=== PATIENT | female | born 1960 | race Caucasian/White ===

== ENCOUNTER 2021-08-29 17:43 | Inpatient (IN) | payer MEDICAID ==
[~2021-08-29] VITALS: Ht 152.4 cm; Wt 125.3 kg
[2021-08-30] VITALS (7 sets, daily range): BP systolic 89–119; BP diastolic 54–81
[2021-08-30] MEDS ORDERED: diphenhydrAMINE 50 MG/ML INJ (BENADRYL) IVP PRN (02:30)
[2021-08-30] MEDS ORDERED: ONDANSETRON 4 MG/2 ML (SDV) Z0FRAN IVP PRN (02:30)
--- OUTSIDE RECORDS SUMMARY | 2021-08-30 02:53 | XMS REPORT ---
Author Author Gayle Ernst Organization [facility] Address [address] [place], [place] [id number] Care Team Providers Care Buying Intern Name Role Phone Anya Ernst PCP Javid Cameron PreferredProvider Allergies and Adverse Reactions Name Reaction Notes NO KNOWN DRUG ALLERGIES Plan of Treatment Planned Activity Comments Planned Date Planned Time Plan/Goal Urinary Incontinence 08/05/2018 3:00 PM Rectal bleeding URINALYSIS W/MICRO C&S IF IND 08/05/2018 12:00 AM URINALYSIS W/MICRO C&S IF IND 02/20/2019 12:00 AM Urinary Incontinence 10/07/2016 10:20 AM Urine culture and sensitivity 08/23/2021 12:00 AM Low back pain Medications Active Name Start Date Estimated Completion Date SIG Co mments Anusol-HC 25 mg rectal suppository 04/11/2019 insert 1 suppository (25 mg) by rectal route once a day at bedtime lisinopril 10 mg oral tablet 11/27/2019 TAKE 1 TABLE T BY MOUTH EVERY DAY simvastatin 10 mg oral tablet 08/22/2020 TA KE 1 TABLET(10 MG) BY MOUTH EVERY DAY IN THE EVENING polyethylene glycol 3350 (bulk) powder 02/25/2021 us e as directed furosemide 20 mg tablet 03/03/2021 take 1 t ablet (20 mg) by oral route once daily as needed for edema LISINOPRIL 10MG TABLETS 05/16/2021 05/11/2022 TAKE 1 TABLET BY MOUTH EVERY DAY SIMVASTATIN 10MG TABLETS 05/19/2021 05/14/2022 TAKE 1 TABLET(10 MG) BY MOUTH EVERY DAY IN THE EVENING MYRBETRIQ 50MG TABLETS 07/15/2021 01/11/2022 TAKE 1 TA BLET BY MOUTH ONCE DAILY SWALLOWING WHOLE WITH WATER. DO NOT CRUSH, CHEW, AND/OR DIVIDE Name Start Date Expiration Date SIG Comments Cipro 500 mg oral tablet 03/09/2015 03/14/2015 take 1 tablet (500 mg) by oral route 2 times per day for 5 days furosemide 40 mg oral tablet 09/12/2015 03/10/2016 leyda e 1 tablet (40 mg) by oral route once daily for 30 days Using her recliner Vesicare 10 mg oral tablet 09/07/2016 03/06/2017 take 1 tablet (10 mg) by oral route once daily for 30 days Myrbetriq 50 mg oral tablet extended release 24 hr take 1 tablet (50 mg) by oral route once daily swallowing whole with water. Do not crush, chew and/or divide. diclofenac sodium 1 % topical gel 08/29/2018 09/28/2018 apply 2 gram to the affected area(s) by topical route 4 times per day for 30 days Lyrica 50 mg oral capsule 08/29/2018 09/05/2018 take 1 capsule (50 mg) by oral route 3 times per day for 7 days celecoxib 200 mg oral capsule 11/15/2018 12/15/2018 ta ke 1 capsule (200 mg) by oral route 2 times per day for 30 days baclofen 10 mg oral tablet 12/27/2018 01/26/2019 take 1 tablet by oral route once a day (at bedtime) for 30 days Vesicare 5 mg oral tablet 02/20/2019 02/15/2020 take 1 tablet (5 mg) by oral route once daily for 30 days Medrol (Shravan) 4 mg oral tablets,dose pack 03/03/2019 take as directed for 6 days tizanidine 4 mg oral tablet 03/03/2019 03/10/2019 take 1 tablet (4 mg) by oral route every 8 hours as needed for 7 days metaxalone 800 mg oral tablet 08/15/2019 09/14/2019 ta ke 1 tablet by oral route 3 times a day for 30 days Myrbetriq 50 mg oral tablet extended release 24 hr 08/21/2020 07/17/2021 take 1 tablet (50 mg) by oral route once daily swallowing whole with water. Do not crush, chew and/or divide. for 30 days SOLIFENACIN 5MG TABLETS 11/18/2020 03/18/2021 TAKE 1 T ABLET(5 MG) BY MOUTH EVERY DAY duloxetine 20 mg capsule,delayed release 03/03/2021 take 1 capsule (20 mg) by oral route 2 times per day for 30 days SOLIFENACIN 5MG TABLETS 03/17/2021 08/14/2021 TAKE 1 T ABLET(5 MG) BY MOUTH EVERY DAY Discontinued Name Start Date Discontinued Date SIG Comments pain med 08/10/2012 no meds 09/15/2012 famciclovir 500 mg oral tablet 09/15/2012 06/25/2014 t tomas 3 tablets by oral route together meloxicam 15 mg oral tablet 09/15/2012 02/21/2013 take 1 tablet (15 mg) by oral route once daily as needed with food for 90 days diclofenac sodium 75 mg oral tablet,delayed release (DR/EC) 02/2106/25/2014 take 1 tablet (75 mg) by oral route 2 times per day with food diclofenac sodium 75 mg oral tablet,delayed release (DR/EC) 06/2503/04/2015 take 1 tablet (75 mg) by oral route 2 times per day with food as needed for arthritis pain "not taking this" furosemide 20 mg oral tablet 06/25/2014 03/04/2015 leyda e 1 tablet (20 mg) by oral route once daily as needed for swelling metformin 500 mg oral tablet 07/04/2014 03/04/2015 leyda e 1 tablet (500 mg) by oral route once daily with the main meal of the day "not taking this" furosemide 20 mg oral tablet 06/21/2015 08/12/2015 leyda e 1 tablet (20 mg) by oral route once daily as needed potassium chloride 20 mEq oral tablet extended release 05/31/2017 take 1 tablet by oral route daily for 30 days "made me throw up" prednisone 20 mg oral tablet 09/07/2016 05/31/2017 leyda e 1 tablet (20 mg) by oral route once daily for 5 days then 0.5 tablet (10 mg) daily for 4 days diclofenac sodium 75 mg oral tablet,delayed release (DR/EC) 201605/31/2017 TAKE 1 TABLET BY ORAL ROUTE 2 TIMES A DAY FOR 30 DAYS WITH FOOD naproxen sodium 550 mg oral tablet 05/31/2017 06/29/2018 take 1 tablet (550 mg) by oral route every 12 hours as needed with food cyclobenzaprine 10 mg oral tablet 05/31/2017 09/16/2017 take 1 tablet (10 mg) by oral route at bedtime triamcinolone acetonide 0.1 % topical lotion 05/31/201712/06 apply a thin layer to the affected area(s) by topical route 3 times per day metformin 500 mg oral tablet 09/16/2017 08/29/2018 leyda e 1 tablet (500 mg) by oral route once daily with the main meal of the day Vaniqa 13.9 % topical cream 06/29/2018 07/18/2018 appl y a thin layer to the affected area(s) by topical route 2 times per day On back order calcipotriene 0.005 % topical cream 06/29/2018 12/06/2018 apply a thin layer to the affected area(s) by topical route 2 times per day ; rub in gently and completely diclofenac sodium 75 mg oral tablet,delayed release (DR/EC) 06/29/2018 08/29/2018 take 1 tablet (75 mg) by oral route 2 times per day fo r 90 days spironolactone 25 mg oral tablet 07/18/2018 08/18/2018 take 1 tablet (25 mg) by oral route once daily for 90 days in am Never filled. Has history of Urinary Incontinence. Toviaz 8 mg oral tablet extended release 24 hr 07/18/2018 1 take 1 tablet (8 mg) by oral route once daily for 30 days "Stopped by Dr. Ruiz" Savella 12.5 mg (5)-25 mg(8)-50 mg(42) oral tablets,dose pac k 09/09/2018 12/06/2018 take as directed Lyrica 50 mg oral capsule 10/11/2018 12/06/2018 take 1 capsule (50 mg) by oral route 3 times per day for 30 days duloxetine 40 mg oral capsule,delayed release(DR/EC) 02/02/2019 04/11/2019 take 1 capsule (40 mg) by oral route once daily for 30 days "not taking it" tizanidine 4 mg oral tablet 04/04/2019 06/07/2019 take 1 tablet (4 mg) by oral route every 8 hours as needed for 30 days methocarbamol 500 mg oral tablet 06/07/2019 07/11/2019 take 2 tablets (1,000 mg) by oral route 4 times per day for 30 days orphenadrine citrate 100 mg oral tablet extended release 07/11/20 19 08/15/2019 take 1 tablet (100 mg) by oral route 2 times per day in the morning and evening for 30 days solifenacin 5 mg oral tablet 03/26/2020 02/25/2021 LEYDA E 1 TABLET(5 MG) BY MOUTH EVERY DAY Problem List Description Status Onset ganglion cysts Active Vital Signs Date Time BP-Sys(mm[Hg] BP-Елена(mm[Hg]) HR(bpm) RR(rpm) Temp WT HT HC BMI BSA BMI Percentile O2 Sat(%) 08/23/2021 12:02:00 PM 140 mm[Hg] 82 mm[Hg] 101 {beats}/min 20 rpm 99.7 F 264 lbs 61 in 49.8819 kg/m2 2.2702 m2 97 % 03/03/2021 12:56:00 PM 142 mm[Hg] 78 mm[Hg] 106 {beats}/min 22 rpm 99.4 F 277 lbs 93 % 02/25/2021 9:49:00 AM 148 mm[Hg] 76 mm[Hg] 78 {beats}/min 18 rpm 87.1 F 276 lbs 61 in 52.1492 kg/m2 2.3212 m2 97 % 01/31/2021 10:03:00 AM 108 mm[Hg] 72 mm[Hg] 83 {beats}/min 18 rpm 98.1 F 273 lbs 61 in 51.58 kg/m2 2.31 m2 98 % 02/26/2020 9:48:00 AM 140 mm[Hg] 70 mm[Hg] 81 {beats}/min 18 rpm 98.6 F 242.312 lbs 98 % 08/15/2019 9:58:00 AM 122 mm[Hg] 78 mm[Hg] 103 {beats}/min 97.7 F 227.375 lbs 61 in 42.9617 kg/m2 2.1069 m2 96 % 07/12/2019 10:30:00 AM 138 mm[Hg] 86 mm[Hg] 76 {beats}/min 18 rpm 98.1 F 243 lbs 61 in 45.91 kg/m2 2.18 m2 96 % 07/11/2019 9:25:00 AM 128 mm[Hg] 80 mm[Hg] 75 {beats}/min 18 rpm 98.1 F 245.562 lbs 61 in 46.3982 kg/m2 2.1895 m2 96 % 06/07/2019 11:23:00 AM 134 mm[Hg] 74 mm[Hg] 96 {beats}/min 96.6 F 235.375 lbs 61 in 44.47 kg/m2 2.14 m2 96 % 04/11/2019 3:36:00 PM 154 mm[Hg] 80 mm[Hg] 78 {beats}/min 22 rpm 99 F 247 lbs 61 in 46.6698 kg/m2 2.1959 m2 97 % 04/04/2019 9:37:00 AM 126 mm[Hg] 76 mm[Hg] 71 {beats}/min 98 F 247 lb s 61 in 46.67 kg/m2 2.20 m2 97 % 03/03/2019 9:56:00 AM 120 mm[Hg] 80 mm[Hg] 90 {beats}/min 97 F 249.375 lbs 61 in 47.1185 kg/m2 2.2064 m2 97 % 02/20/2019 10:07:00 AM 118 mm[Hg] 70 mm[Hg] 74 {beats}/min 18 rpm 97.2 F 250.5 lbs 61 in 47.33 kg/m2 2.21 m2 96 % 02/02/2019 9:23:00 AM 126 mm[Hg] 80 mm[Hg] 89 {beats}/min 97.3 F 253.062 lbs 61 in 47.82 kg/m2 2.22 m2 96 % 01/06/2019 10:22:00 AM 122 mm[Hg] 74 mm[Hg] 81 {beats}/min 18 rpm 97.7 F 251 lbs 61 in 47.4255 kg/m2 2.2136 m2 96 % 12/27/2018 10:11:00 AM 128 mm[Hg] 80 mm[Hg] 79 {beats}/min 20 rpm 98.6 F 251 lbs 61 in 47.43 kg/m2 2.21 m2 95 % 12/20/2018 11:09:00 AM 134 mm[Hg] 86 mm[Hg] 83 {beats}/min 96.6 F 61 in 96 % 12/06/2018 1:42:00 PM 130 mm[Hg] 66 mm[Hg] 79 {beats}/min 20 rpm 98.1 F 264 lbs 61 in 49.8819 kg/m2 2.2702 m2 98 % 11/15/2018 9:23:00 AM 122 mm[Hg] 78 mm[Hg] 85 {beats}/min 18 rpm 97.3 F 251.125 lbs 61 in 47.45 kg/m2 2.21 m2 95 % 10/11/2018 9:36:00 AM 130 mm[Hg] 86 mm[Hg] 74 {beats}/min 18 rpm 258.375 lbs 61 in 48.819 kg/m2 2.2459 m2 97 % 09/06/2018 11:02:00 AM 144 mm[Hg] 78 mm[Hg] 83 {beats}/min 16 rpm 98.6 F 261 lbs 61 in 49.32 kg/m2 2.26 m2 98 % 08/29/2018 9:06:00 AM 140 mm[Hg] 70 mm[Hg] 77 {beats}/min 98.8 F 267.437 lbs 61 in 50.5314 kg/m2 2.2849 m2 95 % 08/22/2018 9:30:00 AM 128 mm[Hg] 80 mm[Hg] 84 {beats}/min 18 rpm 98.1 F 263.5 lbs 61 in 49.79 kg/m2 2.27 m2 98 % 08/18/2018 3:21:00 PM 152 mm[Hg] 80 mm[Hg] 88 {beats}/min 22 rpm 98.2 F 264 lbs 61 in 49.8819 kg/m2 2.2702 m2 98 % 08/05/2018 3:18:00 PM 152 mm[Hg] 90 mm[Hg] 84 {beats}/min 16 rpm 98.6 F 260.25 lbs 60 in 50.83 kg/m2 2.24 m2 95 % 07/18/2018 10:20:00 AM 162 mm[Hg] 84 mm[Hg] 80 {beats}/min 18 rpm 97.9 F 272.5 lbs 61 in 51.4879 kg/m2 2.3065 m2 95 % 06/29/2018 10:21:00 AM 144 mm[Hg] 80 mm[Hg] 82 {beats}/min 22 rpm 98.8 F 280 lbs 61 in 52.90 kg/m2 2.34 m2 97 % 09/16/2017 9:13:00 AM 136 mm[Hg] 78 mm[Hg] 81 {beats}/min 20 rpm 97 F 273 lbs 61 in 51.5824 kg/m2 2.3086 m2 99 % 08/16/2017 10:00:00 AM 144 mm[Hg] 86 mm[Hg] 74 {beats}/min 18 rpm 97.7 F 277.25 lbs 61 in 52.39 kg/m2 2.33 m2 98 % 05/31/2017 3:03:00 PM 146 mm[Hg] 88 mm[Hg] 88 {beats}/min 20 rpm 98.8 F 288 lbs 61 in 54.4166 kg/m2 2.3712 m2 96 % 09/07/2016 3:16:00 PM 134 mm[Hg] 82 mm[Hg] 98 {beats}/min 22 rpm 97.2 F 292.2 lbs 61 in 55.21 kg/m2 2.39 m2 99 % 08/12/2015 9:24:00 AM 152 mm[Hg] 88 mm[Hg] 80 {beats}/min 22 rpm 98.2 F 300 lbs 61 in 56.6839 kg/m2 2.4201 m2 98 % 03/09/2015 1:55:00 PM 278 lbs 61 in 52.53 kg/m2 2.33 m2 03/04/2015 9:34:00 AM 138 mm[Hg] 88 mm[Hg] 72 {beats}/min 16 rpm 97.3 F 278 lbs 61 in 52.5271 kg/m2 2.3296 m2 06/25/2014 10:01:00 AM 138 mm[Hg] 82 mm[Hg] 80 {beats}/min 22 rpm 98 F 273 lbs 61 in 51.58 kg/m2 2.31 m2 02/21/2013 3:52:00 PM 126 mm[Hg] 78 mm[Hg] 70 {beats}/min 18 rpm 98.6 F 223 lbs 61 in 42.135 kg/m2 2.0865 m2 11/08/2012 9:25:00 AM 134 mm[Hg] 78 mm[Hg] 70 {beats}/min 18 rpm 98.6 F 228 lbs 61 in 43.08 kg/m2 2.11 m2 09/15/2012 9:09:00 AM 130 mm[Hg] 68 mm[Hg] 62 {beats}/min 18 rpm 98 F 240 lbs 62 in 43.8961 kg/m2 2.1822 m2 08/10/2012 10:08:00 AM 120 mm[Hg] 80 mm[Hg] 67 {beats}/min 18 rpm 97.7 F 247 lbs 61 in 46.67 kg/m2 2.20 m2 98 % 06/29/2012 10:58:00 AM 120 mm[Hg] 80 mm[Hg] 65 {beats}/min 18 rpm 96.7 F 259.5 lbs 61 in 49.0316 kg/m2 2.2508 m2 97 % 06/01/2012 8:42:00 AM 110 mm[Hg] 68 mm[Hg] 86 {beats}/min 20 rpm 96.1 F 276 lbs 62 in 50.48 kg/m2 2.34 m2 97 % 05/25/2012 1:58:00 PM 120 mm[Hg] 60 mm[Hg] 66 {beats}/min 18 rpm 97.4 F 276.5 lbs 62 in 50.572 kg/m2 2.3423 m2 98 % 05/11/2012 10:48:00 AM 120 mm[Hg] 60 mm[Hg] 71 {beats}/min 18 rpm 97.6 F 278.125 lbs 62 in 50.87 kg/m2 2.35 m2 95 % 05/02/2012 1:44:00 PM 120 mm[Hg] 60 mm[Hg] 78 {beats}/min 18 rpm 96.9 F 271.5 lbs 62 in 49.6575 kg/m2 2.321 m2 99 % 04/26/2012 9:43:00 AM 276.125 lbs 04/20/2012 9:26:00 AM 118 mm[Hg] 68 mm[Hg] 82 {beats}/min 18 rpm 97.3 F 280 lbs 64 in 48.06 kg/m2 2.39 m2 96 % 04/14/2012 1:43:00 PM 110 mm[Hg] 68 mm[Hg] 93 {beats}/min 18 rpm 98.5 F 285 lbs 64 in 48.9196 kg/m2 2.4161 m2 97 % Social History Name Description Comments Alcohol Never Tobacco Never smoker History of Procedures Date Ordered Description Order Status 08/12/2015 12:00 AM TTE W/DOPPLER COMPLETE Reviewed 09/07/2016 12:00 AM TISSUE EXAM FOR FUNGI Reviewed 09/07/2016 12:00 AM SMEAR WET MOUNT SALINE/INK Reviewed 09/07/2016 12:00 AM SMEAR WET M[place] SALINE/INK Reviewed 09/07/2016 12:00 AM Digital screening mammography Reviewed 09/07/2016 12:00 AM RADEX HAND MINIMUM 3 VIEWS Reviewed 04/14/2012 12:00 AM X-RAY EXAM OF FINGER(S) Reviewed 04/14/2012 12:00 AM COMPLETE CBC W/AUTO DIFF WBC Reviewed 04/14/2012 12:00 AM COMPREHEN METABOLIC PANEL Reviewed 04/14/2012 12:00 AM LIPID PANEL Reviewed 04/20/2012 12:00 AM ASSAY GLUCOSE BLOOD QUANT Reviewed 04/20/2012 12:00 AM X-RAY EXAM OF SHOULDER Reviewed 04/22/2012 12:00 AM GLYCOSYLATED HEMOGLOBIN TEST Reviewed 06/29/2012 12:00 AM DESTRUCT PREMALG LESION Reviewed 06/04/2017 12:00 AM ASSAY GLUCOSE BLOOD QUANT Reviewed 08/16/2017 12:00 AM Decadron 8mg Injection Reviewed 08/16/2017 12:00 AM Depo-Medrol 80mg Injection Reviewed 09/16/2017 12:00 AM GLYCOSYLATED HEMOGLOBIN TEST Reviewed 09/16/2017 12:00 AM LIPID PANEL Reviewed 09/16/2017 12:00 AM COMPREHEN METABOLIC PANEL Reviewed 09/16/2017 12:00 AM ALBUMIN URINE MICROALBUMIN QUANTIATIVE R eviewed 09/15/2012 12:00 AM METABOLIC PANEL TOTAL CA Reviewed 09/15/2012 12:00 AM LIPID PANEL Reviewed 09/30/2012 12:00 AM ASSAY GLUCOSE BLOOD QUANT Reviewed 11/08/2012 12:00 AM X-RAY EXAM OF HIP Reviewed 11/08/2012 12:00 AM METABOLIC PANEL TOTAL CA Reviewed 11/08/2012 12:00 AM GLYCOSYLATED HEMOGLOBIN TEST Reviewed 05/31/2017 12:00 AM GLYCOSYLATED HEMOGLOBIN TEST Reviewed 05/31/2017 12:00 AM ASSAY THYROID STIM HORMONE Reviewed 05/31/2017 12:00 AM ASSAY OF TOTAL THYROXINE Reviewed 05/31/2017 12:00 AM ASSAY OF INSULIN Reviewed 05/31/2017 12:00 AM RADIOLOGIC EXAMINATION KNEE 1/2 VIEWS Re viewed 05/31/2017 12:00 AM RADEX SPINE LUMBOSACRAL 2/3 VIEWS Review ed 05/31/2017 12:00 AM COMPREHEN METABOLIC PANEL Reviewed 07/18/2018 12:00 AM COMPREHEN METABOLIC PANEL Reviewed 07/18/2018 12:00 AM GLYCOSYLATED HEMOGLOBIN TEST Reviewed 07/18/2018 12:00 AM LIPID PANEL Reviewed 08/18/2018 12:00 AM METABOLIC PANEL TOTAL CA Reviewed 08/22/2018 12:00 AM Mammogram, screening, bilateral Reviewed 08/30/2018 12:00 AM ASSAY GLUCOSE BLOOD QUANT Reviewed 12/20/2018 12:00 AM RADIOLOGIC EXAMINATION TIBIA & FIBULA 2 VIEWS Returned 01/06/2019 12:00 AM URINALYSIS AUTO W/SCOPE Reviewed 02/20/2019 10:10 AM US URINE CAPACITY MEASURE Reviewed 04/11/2019 12:00 AM GLYCOSYLATED HEMOGLOBIN TEST Reviewed 04/11/2019 12:00 AM LIPID PANEL Reviewed 04/11/2019 12:00 AM COMPREHEN METABOLIC PANEL Reviewed 07/12/2019 12:00 AM COMPLETE CBC W/AUTO DIFF WBC Reviewed 07/12/2019 12:00 AM METABOLIC PANEL TOTAL CA Reviewed 07/12/2019 12:00 AM PROTHROMBIN TIME Reviewed 07/12/2019 12:00 AM THROMBOPLASTIN TIME PARTIAL Reviewed 01/31/2021 12:00 AM URINALYSIS AUTO W/SCOPE Reviewed 08/23/2021 12:27 PM URINALYSIS AUTO W/O SCOPE Reviewed 06/26/2014 12:00 AM ASSAY GLUCOSE BLOOD QUANT Reviewed 06/25/2014 12:00 AM COMPREHEN METABOLIC PANEL Reviewed 06/25/2014 12:00 AM LIPID PANEL Reviewed 06/25/2014 12:00 AM GLYCOSYLATED HEMOGLOBIN TEST Reviewed 06/25/2014 12:00 AM MAMMOGRAM SCREENING Reviewed 03/04/2015 12:00 AM X-RAY EXAM KNEE 4 OR MORE Reviewed 03/09/2015 2:10 PM URINALYSIS AUTO W/O SCOPE Reviewed 03/09/2015 12:00 AM URINE CULTURE/COLONY COUNT Reviewed 03/09/2015 12:00 AM General Surgery Consult Reviewed Results Summary Date and Description Results 09/15/2012 10:04 AM GLUCOSE 126.0 mg/dLSODIUM 14 1.0 mmol/LPOTASSIUM 4.40 mmol/LCHLORIDE 109.0 mmol/LCO2 22.0 mmol/LBUN 23.0 mg/dLCREATININE 0.90 mg/dLCALCIUM 9.60 mg/dLAGE 52 GFR NonAA 65 GFR AA 79 eGFR 60 eGFR AA* 60 T RIGLYCERIDES 140.0 mg/dLCHOLESTEROL 184.0 mg/dLHDL 31.0 mg/dLTOT CHOL/HDL 5.9 LDL (CALC) 125.0 mg/dL 10/03/2012 10:30 AM GLUCOSE 119.0 mg/dL 11/08/2012 10:30 AM GLUCOSE 114.0 mg/dLSODIUM 14 1.0 mmol/LPOTASSIUM 4.30 mmol/LCHLORIDE 106.0 mmol/LCO2 25.0 mmol/LBUN 18.0 mg/dLCREATININE 0.90 mg/dLCALCIUM 9.50 mg/dLAGE 52 GFR NonAA 65 GFR AA 79 eGFR 60 eGFR AA* 60 G LYCOHEMOGLOBIN A1C 5.70 % 06/25/2014 11:02 AM HGB A1C 6.20 %Est Avg Glucos e 131.2 mg/dLTRIGLYCERIDES 98.0 mg/dLCHOLESTEROL 178.0 mg/dLHDL 40.0 mg/dLTOT CHOL/HDL 4.5 LDL (CALC) 118.0 mg/dLGLUCOSE 131.0 mg/dLSODIUM 143.0 mmol/LPOTASSIUM 4.80 mmol/LCHLORIDE 107.0 mmol/LCO2 25.0 mmol/LBUN 18.0 mg/dLCREATININE 0.90 mg/dLSGOT/AST 14.0 IU/LSGPT/ALT 10.0 IU/LALK PHOS 81.0 IU/LTOTAL PROTEIN 7.0 g/dLALBUMIN 4.20 g/dLTOTAL BILI 0.80 mg/dLCALCIUM 9.50 mg/dLAGE 54 GFR NonAA 65 GFR AA 79 eGFR 60 eGFR AA* 60 06/28/2014 9:30 AM GLUCOSE 125.0 mg/dL 03/09/2015 2:10 PM Bilirub Ur Ql Strip negative Clarity Ur clear Color Ur lt. yellow Glucose Ur-sCnc negative Hgb Ur Ql Strip trace Ketones Ur Ql Strip negative Nitrite Ur Ql Strip negative pH Ur-LsCnc 5.0 Prot Ur Ql Strip negative Sp Gr Ur Qn 1.010 Urobilinogen Ur-mCnc 0.2 WBC Est Ur Ql Strip moderate 09/07/2016 5:16 PM WET PREP NO TRICH SEEN CLUE CELLS NONE SEEN 06/03/2017 9:25 AM T4 7.10 ug/dLTSH 1.250 uIU/m LHGB A1C 6.20 %Est Avg Glucose 131.2 mg/dLGLUCOSE 147.0 mg/dLSODIUM 140.0 mmol/LPOTASSIUM 4.50 mmol/LCHLORIDE 106.0 mmol/LCO2 22.0 mmol/LBUN 18.0 mg/dLCREATININE 0.90 mg/dLSGOT/AST 16.0 IU/LSGPT/ALT 9.0 IU/LALK PHOS 83.0 IU/LTOTAL PROTEIN 7.60 g/dLALBUMIN 4.20 g/dLTOTAL BILI 1.30 mg/dLCALCIUM 9.70 mg/dLAGE 57 GFR NonAA 64 GFR AA 78 eGFR >60 mL/min/1.73 m2eGFR AA* >60 Insulin 11.8 06/07/2017 9:45 AM GLUCOSE 102.0 mg/dL 09/16/2017 9:00 AM GLUCOSE 137.0 mg/dLSODIUM 14 3.0 mmol/LPOTASSIUM 4.40 mmol/LCHLORIDE 107.0 mmol/LCO2 26.0 mmol/LBUN 16.0 mg/dLCREATININE 0.90 mg/dLSGOT/AST 12.0 IU/LSGPT/ALT 9.0 IU/LALK PHOS 84.0 IU/LTOTAL PROTEIN 6.90 g/dLALBUMIN 4.0 g/dLTOTAL BILI 1.20 mg/dLCALCIUM 9.30 mg/dLAGE 57 GFR NonAA 64 GFR AA 78 eGFR >60 mL/min/1.73 m2eGFR AA* >60 TRIGLYCERIDES 83.0 mg/dLCHOLESTEROL 161.0 mg/dLHDL 43.0 mg/dLTOT CHOL/HDL 3.7 LDL (CALC) 101.0 mg/dLMICROALBUMIN UR 6.0 ug/mLHGB A1C 5.90 %Est Avg Glucose 122.6 mg/dL 07/19/2018 10:26 AM HGB A1C 5.60 %Est Avg Glucos e 114.0 GLUCOSE 120 SODIUM 141 POTASSIUM 4.5 CHLORIDE 106 CO2 23 BUN 17.0 mg/dLCREATININE 0.90 mg/dLSGOT/AST 14 SGPT/ALT 10 ALK PHOS 80 TOTAL PROTEIN 7.8 ALBUMIN 4.70 g/dLTOTAL BILI 1.0 CALCIUM 10.0 mg/dLAGE 58 GFR NonAA 64 GFR AA 78 eGFR 64 eGFR AA* >60 mL/min/1.73 [id number] 132 CHOLESTEROL 201.0 mg/dLHDL 39 TOT CHOL/HDL 5.2 LDL (CALC) 136 08/22/2018 10:20 AM GLUCOSE 135 SODIUM 140 POTAS SIUM 4.5 CHLORIDE 110.0 mmol/LCO2 19 BUN 23.0 mg/dLCREATININE 1.0 mg/dLCALCIUM 9.70 mg/dLAGE 58 GFR NonAA 57 GFR AA 69 eGFR 57 eGFR AA* >60 mL/min/1.73 m2 01/06/2019 11:15 AM COLOR YELLOW APPEARANCE NIKI R SPEC GRAV 1.025 pH 6.0 PROTEIN NEGATIVE GLUCOSE NEGATIVE KETONE TRACE BILIRUBIN NEGATIVE BLOOD NEGATIVE NITRITE NEGATIVE LEUK SCREEN NEGATIVE WBC/HPF 0-5 RBC/HPF NEGATIVE CASTS/LPF NEGATIVE CRYSTALS NEGATIVE MUCOUS THRDS 2++ BACTERIA 1+ EPITH CELLS 2++ SQUAMOUS TRICHOMONAS NEGATIVE YEAST NEGATIVE CULT SET UP? NO 02/20/2019 10:10 AM Residual Urine 64.0 mL 04/13/2019 9:30 AM TRIGLYCERIDES 127 CHOLESTERO L 132.0 mg/dLHDL 34 TOT CHOL/HDL 3.9 LDL (CALC) 73 GLUCOSE 127 SODIUM 143 POTASSIUM 5.1 CHLORIDE 110.0 mmol/LCO2 23 BUN 14.0 mg/dLCREATININE 1.060 mg/dLSGOT/AST 10 SGPT/ALT <6 ALK PHOS 73 TOTAL PROTEIN 6.7 ALBUMIN 4.4 TOTAL BILI 1.0 CALCIUM 9.60 mg/dLAGE 59 GFR NonAA 53 GFR AA 64 eGFR 53 eGFR AA* >60 mL/min/1.73 m2HGB A1C 6.30 %Est Avg Glucose 134.1 07/12/2019 11:25 AM WBC 4.8 RBC 3.64 HGB 12.0 g/ dLHCT 36.80 %MCV 101.0 fLMCH 33.0 pgMCHC 32.60 g/dLRDW SD 45 fLRDW CV 12.10 %MPV 11.0 fLPLT 151 x10E3/uLNRBC# 0.00 NRBC% 0.0 %NEUT 68.1 %LYMP 23.4 %MONO 6.7 %EOS 1.0 %BASO 0.6 #NEUT 3.25 #LYMP 1.12 #MONO 0.32 #EOS 0.05 #BASO 0.03 MANUAL DIFF NOT IND GLUCOSE 114 SODIUM 140 POTASSIUM 4.2 CHLORIDE 106.0 mmol/LCO2 25 BUN 16.0 mg/dLCREATININE 0.890 mg/dLCALCIUM 9.20 mg/dLAGE 59 GFR NonAA 65 GFR AA 79 eGFR 65 mL /min/1.73meGFR AA* >60 mL/min/1.73mPROTIME 11.8 INR 1.1 PTT 36.0 01/31/2021 11:52 AM COLOR Light-Yellow CLARITY C lear SPEC GRAV 1.029 pH 5.5 PROTEIN 10 GLUCOSE Normal KETONE Negative BILIRUBIN Negative BLOOD Negative NITRITE Negative LEUK SCREEN Negative RBC/HPF 0-3 WBC/HPF 0-5 BACTERIA/HPF None Seen SQUAMOUS EPI/LPF 3+ MUCOUS/LPF Few HYALINE CAST/LPF 1+ CULT SET UP? NO 08/23/2021 12:27 PM Clarity Ur cloudy Urine-[place] r yellow Glucose Ur-sCnc neg Bilirub Ur Ql small Ketones Ur Ql Strip 15 mg/dL Sp Gr Ur Qn >=1.030 Hgb Ur Ql Strip trace pH Ur-LsCnc 5.5 Prot Ur Ql Strip 100mg/dL Urobilinogen Ur-mCnc 2.0 EU/dL Nitrite Ur Ql Strip neg WBC # Ur neg History Of Immunizations Not available. History of Past Illness Name Date of Onset Comments ganglion cysts right index finger General Medical Exam, Adult Apr 14 2012 1:48PM Swelling, Mass, Or Lump; Localized Superficial Apr 14 2012 1:48PM Learning Disability Apr 14 2012 1:48PM Pain in joint; shoulder region, Left Apr 20 2012 9:27AM Routine gynecological examination Apr 20 2012 9:27AM Hyperglycemia Apr 20 2012 9:27AM Hyperglycemia Apr 22 2012 3:53PM Ganglion of tendon sheath, right index finger May 02 2012 1 :52PM Postoperative Follow-up May 25 2012 2:03PM Postoperative Follow-up Jun 01 2012 8:45AM Benign Neoplasm Of Skin Of Trunk Jun 29 2012 11:02AM Postoperative Follow-up Jun 29 2012 11:01AM Ganglion of tendon sheath, right index finger May 11 2012 10 :52AM Hyperglyceridemia, Pure Sep 15 2012 9:11AM Herpes Simplex Of Lip Sep 15 2012 9:11AM Osteoarthritis Sep 15 2012 9:11AM Hyperglycemia Sep 30 2012 9:35AM Hyperglycemia Oct 06 2012 9:43AM Postoperative Follow-up Aug 10 2012 10:13AM Hyperglycemia Nov 08 2012 9:27AM Pain in joint; Left Hip Nov 08 2012 9:27AM Myalgia Nov 08 2012 9:27AM Glossodynia Nov 08 2012 9:27AM Neck Pain Feb 21 2013 3:54PM Pain in joint; shoulder region, Bilateral Feb 21 2013 3:54P M Neuropathy, bilateral hand Feb 21 2013 3:54PM Hyperglycemia Jun 25 2014 10:04AM Hyperlipidemia, Mixed Jun 25 2014 10:04AM Hyperglycemia Jun 26 2014 9:45AM Edema Jun 25 2014 10:04AM Breast cancer screening Jun 25 2014 10:04AM Pain in joint; left knee Mar 04 2015 9:35AM Urge incontinence Mar 04 2015 9:35AM Urinary Tract Infection Mar 09 2015 1:55PM Colon cancer screening Mar 09 2015 1:55PM Dependent Edema Aug 12 2015 9:26AM Shortness of breath Aug 12 2015 9:26AM Right knee pain Aug 12 2015 9:26AM Visit for screening mammogram Sep 07 2016 3:19PM Left hand pain Sep 07 2016 3:19PM Vaginal discharge Sep 07 2016 5:10PM Vaginal Discharge Sep 07 2016 3:19PM Mixed incontinence Sep 07 2016 3:19PM Hyperglycemia May 31 2017 3:05PM Low Back Pain May 31 2017 3:05PM Left knee pain May 31 2017 3:05PM Hyperglycemia Jun 04 2017 12:31PM Psoriasis May 31 2017 3:05PM Rectal Bleeding Aug 16 2017 10:02AM Low Back Pain Aug 16 2017 10:02AM Hyperglycemia Sep 16 2017 8:47AM Hyperglycemia Sep 16 2017 9:16AM Hirsutism Jun 29 2018 10:23AM Low Back Pain Jun 29 2018 10:23AM Actinic Keratosis Jun 29 2018 10:23AM Urinary Incontinence Jun 29 2018 10:23AM Hyperglycemia Jul 18 2018 10:21AM Hirsutism Jul 18 2018 10:21AM Edema Jul 18 2018 10:21AM OAB (overactive bladder) Aug 05 2018 3:20PM Hyperglycemia Aug 18 2018 3:23PM Benign essential hypertension Aug 18 2018 3:23PM Mixed Incontinence (female) Aug 05 2018 3:20PM Visit for screening mammogram Aug 22 2018 9:33AM Mixed incontinence Aug 22 2018 9:33AM Encounter for gynecological examination without abnorm al finding Aug 22 2018 9:33AM Mechanical low back pain Aug 29 2018 9:13AM Fibromyalgia Aug 29 2018 9:13AM Chronic pain syndrome Aug 29 2018 9:13AM Hyperglycemia Aug 30 2018 4:31PM OAB (overactive bladder) Sep 06 2018 11:06AM Urge Incontinence Sep 06 2018 11:06AM Mechanical low back pain Oct 11 2018 9:40AM Fibromyalgia Oct 11 2018 9:40AM Chronic pain syndrome Oct 11 2018 9:40AM Mechanical low back pain Nov 15 2018 9:26AM Fibromyalgia Nov 15 2018 9:26AM Chronic pain syndrome Nov 15 2018 9:26AM Rectal Bleeding b 2018 1:43PM Left leg pain Feb 2018 11:12AM Mechanical low back pain b 2018 11:12AM Fibromyalgia b 2018 11:12AM Chronic pain syndrome b 2018 11:12AM Spasm b 2018 11:12AM OAB (overactive bladder) Jan 06 2019 10:25AM Colon Cancer Screening Dec 27 2018 10:12AM Rectal bleeding b 2018 10:12AM Left leg pain Feb 02 2019 9:26AM Mechanical low back pain Feb 02 2019 9:26AM Fibromyalgia Feb 02 2019 9:26AM Chronic pain syndrome Feb 02 2019 9:26AM Spasm Feb 02 2019 9:26AM Urinary Frequency Feb 20 2019 10:10AM Urinary urgency Feb 20 2019 10:10AM OAB (overactive bladder) Feb 20 2019 10:10AM Left leg pain Mar 03 2019 9:59AM Mechanical low back pain Mar 03 2019 9:59AM Fibromyalgia Mar 03 2019 9:59AM Chronic pain syndrome Mar 03 2019 9:59AM Spasm Mar 03 2019 9:59AM Left leg pain Apr 04 2019 9:41AM Mechanical low back pain Apr 04 2019 9:41AM Fibromyalgia Apr 04 2019 9:41AM Chronic pain syndrome Apr 04 2019 9:41AM Spasm Apr 04 2019 9:41AM Hemorrhoids Apr 11 2019 3:38PM Constipation Apr 11 2019 3:38PM Hypertension Apr 11 2019 4:56PM Hyperlipemia Apr 11 2019 4:56PM Hyperglycemia Apr 11 2019 4:56PM Left knee pain, unspecified chronicity Apr 11 2019 3:38PM Left leg pain Jun 07 2019 11:27AM Mechanical low back pain Jun 07 2019 11:27AM Fibromyalgia Jun 07 2019 11:27AM Chronic pain syndrome Jun 07 2019 11:27AM Spasm Jun 07 2019 11:27AM Left leg pain Sep 2018 9:30AM Mechanical low back pain Sep 2018 9:30AM Fibromyalgia Sep 2018 9:30AM Chronic pain syndrome Sep 2018 9:30AM Spasm Sep 2018 9:30AM Spontaneous ecchymosis Sep 2018 10:33AM Seborrheic keratosis Sep 11 2019 10:33AM Left leg pain Aug 15 2019 10:00AM Mechanical low back pain Aug 15 2019 10:00AM Fibromyalgia Aug 15 2019 10:00AM Chronic pain syndrome Aug 15 2019 10:00AM Spasm Aug 15 2019 10:00AM OAB (overactive bladder) Feb 26 2020 9:49AM Mixed Incontinence (female) Feb 26 2020 9:49AM OAB (overactive bladder) Jan 31 2021 10:05AM Urge Incontinence Jan 31 2021 10:05AM Obesity Jan 31 2021 10:05AM Mentally challenged Jan 31 2021 10:05AM Constipation Jan 31 2021 10:05AM Urge incontinence Jan 31 2021 11:13AM OAB (overactive bladder) Feb 25 2021 9:55AM Urge Incontinence Feb 25 2021 9:55AM Obesity Feb 25 2021 9:55AM Walker as ambulation aid Feb 25 2021 9:55AM Constipation Feb 25 2021 9:55AM Lower extremity edema Mar 03 2021 12:58PM Pain in right lower leg Mar 03 2021 12:58PM Pain in left lower leg Mar 03 2021 12:58PM Urinary incontinence Aug 23 2021 12:07PM Hematuria Aug 23 2021 12:07PM Payers Insurance Name Company Name Plan Name Plan Number Policy Number [place] Group [facility] [id number] N/A [place] [facility] Andrew tance Prog [id number] N/A [employer] - RHC - CMFHP [employer] - RHC - CMFHP [id number] N/A [place] [employer] - RHC [place] [employer] - RH C [id number] N/A [facility] [employer] RHC Comm [id number] Thursday, 2012 History of Encounters Visit Date Visit Type Provider 08/23/2021 Office visit Anya HERNANDEZ RN 03/03/2021 Office visit Yina García APR N 02/25/2021 Office visit Sy Ruiz MD 01/31/2021 Office visit DON BENJAMIN SCREW REMOVER 02/26/2020 Office visit DON BENJAMIN SCREW REMOVER 08/15/2019 Office visit Colinjayjay Duttona DO 07/12/2019 Office visit Javid Rakesh DO 07/11/2019 Office visit Colinjayjay Duttona DO 06/07/2019 Office visit Colin Cat DO 04/11/2019 Office visit Javid Rakesh DO 04/04/2019 Office visit Colinjayjay Duttona DO 03/03/2019 Office visit Colinjayjay Duttona DO 02/20/2019 Procedures Sy Ruiz MD 02/02/2019 Office visit Colinjayjay Duttona DO 01/13/2019 Surgery Chao Wilson MD 01/06/2019 Office visit Sy Ruiz MD 12/27/2018 Office visit Chao Wilson MD 12/20/2018 Office visit Colinjayjay Duttona DO 12/06/2018 Office visit Javid Rakesh DO 11/15/2018 Office visit Colinjayjay Duttona DO 10/11/2018 Office visit Colinjayjay Duttona DO 09/06/2018 Office visit Sy Ruiz MD 08/29/2018 Office visit Colinjayjay Duttona DO 08/22/2018 Office visit Javid Rakesh DO 08/18/2018 Office visit Javid Rakesh DO 08/05/2018 Office visit Sy Ruiz MD 07/18/2018 Office visit Javid Rakesh DO 06/29/2018 Office visit Javid Rakesh DO 09/16/2017 Office visit Javid Rakesh DO 08/16/2017 Office visit Javid Rakesh DO 05/31/2017 Office visit Javid Rakesh DO 09/07/2016 Office visit Javid Rakesh DO 08/12/2015 Office visit Javid Rakesh DO 03/09/2015 Office visit Yasmine HERNANDEZ RN 03/04/2015 Office visit Javid Rakesh DO 06/25/2014 Office visit Javid Rakesh DO 02/21/2013 Office visit Javid Rakesh DO 11/08/2012 Office visit Javid Rakesh DO 09/15/2012 Office visit Javid Rakesh DO 08/10/2012 Office visit Chao Wilson MD 06/29/2012 Office visit Chao Wilson MD 06/01/2012 Office visit Chao Wilson MD 05/25/2012 Office visit Chao Wilson MD 05/19/2012 [facility] Chao Wilson MD 05/11/2012 Office visit Chao Wilson MD 05/02/2012 Office visit Chao Wilson MD 04/20/2012 Office visit Jaylene Leiva APRN 04/14/2012 Office visit Jaylene Leiva APRN
--- NOTE | 2021-08-30 03:30 | Tele-ICU Consult ---
History of Present Illness History of Present Illness Date Seen by Provider: Aug 30, 2021 Time Seen by Provider: 03:25 Date of Admission Reason for Visit: Acute hypoxemic respiratory failure History of Present Illness 61 yo F admitted from OSH with acute severe hypoxemic respiratory failure due to COVID19. Patient received intubated on vent sedated with propofol. RN requesting renewal for propofol, she is still reviewing OSH records-- unsure what prior treatments for COVID19 that patient has previously received. She is unsure about patient's vaccination status. Patient is intubated and sedated, no EMR documentation available. Patient appears to be obese, awaiting weight. All history obtained from reviewing with bedside staff. Acute hypoxemic respiratory failure on vent, AC 18/400/14/100 PMH ?HTN, hyperlipidemia Allergies and Home Medications Allergies Coded Allergies: No Allergy Information Available (Unverified , 08/30/21) Exam Exam Patient acknowledged, consented, and participated in this virtual visit which was conducted using real time audio/video Height & Weight Height: '" Weight: lbs. oz. kg; BMI Method: General Appearance: Other (Sedated on vent) Results Lab N/A Radiology N/A Assessment/Plan Assessment/Plan Acute hypoxemic respiratory failure on vent, AC 18/400/14/100 History of severe COVID19, increase steroid dosing, check weights-- obtain OSH records Prone positioning ordered of P:F ratio < 150, Lev/iFlolan unavailable on site per ICU staff ABG ordered, Labs still pending, CXR pending Sedation and DVT prophylaxis orders to be placed when weight is entered Restraints and OGT orders also requested Critical Care: Ventilator Management DOEINGZAK MD Aug 30, 2021 03:30
[2021-08-30 04:21] LABS: BASOPHILS % (AUTO) 0 % (0-10); EOSINOPHILS % (AUTO) 0 % (0-10); HEMATOCRIT 36 % (35-52); HEMOGLOBIN 11.8 g/dL (11.5-16.0); LYMPHOCYTES # (AUTO) 0.4 10^3/uL (1.0-4.0); LYMPHOCYTES % (AUTO) 8 % (12-44); MEAN CORPUSCULAR HEMOGLOBIN 32 pg (25-34); MEAN CORPUSCULAR HGB CONC 33 g/dL (32-36); MEAN CORPUSCULAR VOLUME 98 fL (80-99); MEAN PLATELET VOLUME 10.7 fL (9.0-12.2); MONOCYTES # (AUTO) 0.2 10^3/uL (0.0-1.0); MONOCYTES % (AUTO) 4 % (0-12); NEUTROPHILS # (AUTO) 3.9 10^3/uL (1.8-7.8); NEUTROPHILS % (AUTO) 86 % (42-75); PLATELET COUNT 141 10^3/uL (130-400); WHITE BLOOD COUNT 4.6 10^3/uL (4.3-11.0)
[2021-08-30 04:22] LABS: ABG OXYGEN SATURATION 95 % (94-100); ABG PCO2 37 MMHG (35-45); ABG PH 7.36 (7.37-7.43); ABG PO2 76 MMHG (79-93); ABG TCO2 21.6 MMOL/L (21.0-31.0)
[2021-08-30 04:24] LABS: ALLENS TEST YES-POS; INSPIRED O2 100%; PATIENT TEMP NOT INDICATED; VENTILATOR YES
[2021-08-30 04:34] LABS: ALBUMIN 3.4 GM/DL (3.2-4.5); POTASSIUM 4.2 MMOL/L (3.6-5.0)
[2021-08-30 04:35] LABS: CALCIUM 7.8 MG/DL (8.5-10.1)
[2021-08-30 04:36] LABS: TOTAL PROTEIN 6.2 GM/DL (6.4-8.2)
[2021-08-30 04:38] LABS: BILIRUBIN,TOTAL 0.4 MG/DL (0.1-1.0)
[2021-08-30 04:40] LABS: CREATININE SERUM 0.77 MG/DL (0.60-1.30)
[2021-08-30 04:43] LABS: MAGNESIUM 2.1 MG/DL (1.6-2.4)
[2021-08-30] MEDS: PROPOFOL DRIP (ICU) 100 ML IV SCH ×3 (05:12→14:47)
[2021-08-30] MEDS: fentaNYL DRIP PRE-MIX 250 ML IV SCH ×2 (05:13→17:39)
[2021-08-30] MEDS ORDERED: inSUlin ASPART (NovoLOG) 1 UNIT/0.01 ML (CHARGE PER UNIT) SC SCH (06:00)
[2021-08-30] MEDS: POTASSIUM CL 10MEQ/50ML IVPB 50 ML IV SCH (07:08)
[2021-08-30] MEDS: MAGNESIUM 1 GM/100 ML IVPB 100 ML IV SCH (07:09)
[2021-08-30] MEDS: KCL 20 MEQ TAB (K-DUR) PO SCH (07:10)
[2021-08-30] MEDS ORDERED: ENOXAPARIN 60 MG/0.6 ML (LOVENOX) SYR SC ONE (08:30)
[2021-08-30] MEDS ORDERED: ENOXAPARIN 100 MG/1 ML (LOVENOX) SYR SC SCH (08:30)
[2021-08-30] MEDS ORDERED: ENOXAPARIN 60 MG/0.6 ML (LOVENOX) SYR SC SCH (09:00)
--- NOTE | 2021-08-30 09:05 | Diagnostic Imaging Report ---
Clinical Indication: Patient is COVID positive and on ventilator. Exam: Portable chest x-ray semiupright view. Comparisons: None. Findings: There are is a moderate amount of patchy infiltrate and small areas of consolidation throughout both lungs, most pronounced in the left lung base. There is some sparing of the left lung apex region. There is cardiomegaly. Pulmonary vasculature is obscured. ET tube is seen in good position with tip at the T4 vertebral body level. Feeding tube is noted with distal portion overlying the antrum or first portion of the duodenum in good position. There is another tubing overlying the right chest region which is incompletely imaged distally and the origin of this tube is unknown. If this represents a central line catheter, it is seen lying below the hemidiaphragm region, but is not as well visualized in this area. Bones show no significant abnormality. There is blunting of the left costophrenic angle and a pleural effusion cannot be completely excluded. IMPRESSION: 1: There is a tubing overlying the right chest region. If this represents a central line tubing, a portion of it is seen lying beneath the right hemidiaphragm region. This catheter should be readjusted. Of this is not a central line, then clinical correlation is suggested. 2: There are bilateral lung infiltrates with the left lung base affected the most. 3: ET tube and feeding tube are seen in good positions. Dictated by: Dictated on workstation # [id number]
[2021-08-30] MEDS ORDERED: TOCILIZUMAB INJECTION (NON-FOR 800 MG in NS (IVPB) 60 ML IV ONE (11:15)
--- NOTE | 2021-08-30 11:25 | History & Physical-Hospitalist ---
History of Present Illness HPI/Chief Complaint Gayle Nieto is a 61-year-old female who presented to [facility] with acute respiratory failure due to COVID-19. She required intubation and mechanical ventilation in their ER. Upon my examination she is unable to provide any history due to her clinical condition. She was reportedly diagnosed with Covid a few days prior to going into the emergency room. She has no significant past medical history other than mild cognitive impairment. Her daughter states that she has been living alone and has been in good health. Her daughter states that she would not want to be resuscitated if her heart was to stop beating. She also says that she did not want the ventilator but she would like to proceed now that she is on it. Source: patient Exam Limitations: no limitations Date Seen 08/30/21 Time Seen by a Provider: 10: Attending Physician Greer Tapia MD PCP No,Local Physician Referring Physician Date of Admission Aug 30, 2021 at 02:12 Home Medications & Allergies Home Medications Reviewed patient Home Medication Reconciliation performed by pharmacy medication reconciliations hydrology technician and/or nursing. Patients Allergies have been reviewed. Allergies Allergies Coded Allergies No Allergy Information Available (Akonavnkdy58/30/21) Past Wgdkfah-Rkkint-Jwdztz Hx Current Status status: Unknown status: Unable to obtain Advance Directives: Unable to obtain Communicates: Verbally Primary Language: Palestinian Preferred Spoken Language: Palestinian Is interpretation needed?: No Past Medical History Developmental Disorder Family Medical History No Pertinent Family Hx Review of Systems ROS-Unable to Obtain: Intubated and sedated Constitutional: see HPI Physical Exam Physical Exam Vital Signs Vital Signs - First Documented 08/30/21 08/30/21 08/30/21 02:12 02:30 11:00 Temp 36.8 Pulse 71 Resp 24 B/P (MAP) 127/86 Pulse Ox 90 O2 Delivery Mechanical Ventilator O2 Flow Rate 100.00 FiO2 100 Capillary Refill : Less Than 3 Seconds Height, Weight, BMI Height: '" Weight: lbs. oz. kg; 52.35 BMI Method: General Appearance: No Apparent Distress, Obese HEENT: Other (Endotracheal tube in place) Neck: Normal Inspection, Supple, Other (Central line in place) Respiratory: No Respiratory Distress, Decreased Breath Sounds, Other (Intubated and mechanically ventilated) Cardiovascular: No Edema, No Murmur, Bradycardia Gastrointestinal: Normal Bowel Sounds, Soft Extremity: Normal Inspection, No Pedal Edema Skin: Normal Color, Warm/Dry Results Results/Procedures Labs Laboratory Tests 08/30/21 04:10 Patient resulted labs reviewed. Imaging: Reviewed Imaging Report Assessment/Plan Admission Diagnosis Acute respiratory distress syndrome due to COVID-19 Admission Status: Inpatient Order (span 2 midnights) Reason for Inpatient Admission: Respiratory failure Assessment and Plan Acute respiratory distress syndrome due to COVID-19 Hypercoagulable state associated with COVID-19 Super obesity Cognitive impairment Goals of care discussion Poor prognosis COVID+ at outside facility Intubated at the [place] ER High ventilator requirements TeleICU consulted, appreciate assistance Ddimer elevated CT PE negative at outside facility Therapeutic Lovenox Procalcitonin within normal limits Antibiotics not indicated at this time Started on Decadron Discussed Actemra, risks/benefits/EUA use and daughter agrees Discussed code status, DNR Critical Care Critically Ill Patient Diagnosis/Problems Diagnosis/Problems (1) Acute respiratory distress syndrome (ARDS) due to COVID-19 virus Status: Acute (2) Hypercoagulable state associated with COVID-19 Status: Acute (3) Super obesity Status: Chronic (4) Cognitive impairment Status: Chronic (5) Poor prognosis Status: Acute (6) Goals of care, counseling/discussion Status: Acute (7) DNR (do not resuscitate) Status: Acute GREER TAPIA MD Aug 30, 2021 11:25
[2021-08-30] MEDS: inSUlin ASPART (NovoLOG) 1 UNIT/0.01 ML (CHARGE PER UNIT) SC SCH ×2 (11:48→17:38)
[2021-08-30 12:40] LABS: ABG BASE EXCESS -3.4 MMOL/L (-2.5-2.5); ABG OXYGEN SATURATION 93 % (94-100); ABG PCO2 38 MMHG (35-45); ABG PH 7.37 (7.37-7.43); ABG PO2 69 MMHG (79-93); ABG TCO2 22.2 MMOL/L (21.0-31.0); ALLENS TEST POSITIVE
[2021-08-30 12:41] LABS: INSPIRED O2 100%; PATIENT TEMP 36.9; VENTILATOR YES
--- NOTE | 2021-08-30 12:52 | Tele-ICU Consult ---
History of Present Illness History of Present Illness Date Seen by Provider: Aug 30, 2021 Time Seen by Provider: 12:46 Date of Admission 08/29/21 Reason for Visit: Acute hypoxemic respiratory failure History of Present Illness She is a 61-year-old female with past medical history of morbid obesity on the intellectual disabilities apparently marginally presented to [facility] on Wednesday, 24 August through with shortness of breath and found to have a Covid19 pneumonia. She was treated and released and subsequently she presented yesterday to [facility] in [place] where she was found to be hypoxic and intubated and subsequently transferred to [facility] in [place]. She is found to be in ARDS. I do not have much of information in the computer however I made the RN to fax in the information from [facility] and I have reviewed. She had a echocardiogram at that hospital and found to have a tachyarrhythmia it is not clear whether it is A. fib or sinus tach but no significant left ventricular regional wall motion abnormalities. Ejection fraction found to be around 55 to 60% with left ventricular hypertrophy. Also patient had a CT angiogram of the chest which is negative for pulmonary emboli but has a bilateral pulmonary infiltrates the pattern consistent with Covid19 pneumonia. Currently she is on mechanical ventilation sedated. Earlier this morning she was on a PEEP of 14 with 100% FiO2 but desaturated apparently hence in the vent setting change it to respiratory rate of 22 and PEEP of 18 with FiO2 of 100%. We are awaiting an arterial blood gas at this time. I have made a video visit and discussed with the ENVIRONMENTAL STUDIES DEPARTMENT CHAIR. Physical examination and review of system per attending physician. Allergies and Home Medications Allergies Coded Allergies: No Allergy Information Available (Unverified , 08/30/21) Past Medical/Social/Family Hx Immunizations Up To Date Influenza Vaccine Up-to-Date: No; Not Current Current Status status: Unknown status: Unable to obtain Advance Directives: Unable to obtain Communicates: Verbally Primary Language: Citizen Of [place] Preferred Spoken Language: Citizen Of [place] Is interpretation needed?: No Review of Systems Constitutional: see HPI Other per attending physician Sepsis Event Evaluation Height, Weight, BMI Height: '" Weight: lbs. oz. kg; 52.35 BMI Method: Exam Exam Patient acknowledged, consented, and participated in this virtual visit which was conducted using real time audio/video Vital Signs Date Time Temp Pulse Resp B/P (MAP) Pulse Ox O2 Delivery O2 Flow Rate FiO2 08/30/21 12:35 94 Mechanical Ventilator 100 08/30/21 12:00 36.9 51 21 90/57 96 Mechanical Ventilator 100.00 08/30/21 11:00 36.8 53 21 89/62 95 Mechanical Ventilator 100.00 08/30/21 10:47 53 22 93 100 08/30/21 10:34 54 18 89 100 08/30/21 10:00 55 18 95/61 89 Mechanical Ventilator 100.00 08/30/21 09:50 55 18 88 100 08/30/21 09:00 54 18 104/69 94 Mechanical Ventilator 100.00 08/30/21 08:16 94 Mechanical Ventilator 100 08/30/21 08:05 59 114/78 08/30/21 08:05 59 114/78 08/30/21 08:00 58 15 114/78 91 Mechanical Ventilator 100.00 08/30/21 07:00 59 08/30/21 07:00 60 18 129/86 94 Mechanical Ventilator 100.00 08/30/21 06:52 62 18 94 100 08/30/21 06:00 60 18 120/81 94 Mechanical Ventilator 100.00 08/30/21 05:12 64 145/96 08/30/21 05:00 73 18 131/86 93 Mechanical Ventilator 100.00 08/30/21 04:52 17 93 Mechanical Ventilator 100.00 08/30/21 04:26 Mechanical Ventilator 08/30/21 04:15 71 25 145/98 94 Mechanical Ventilator 100.00 08/30/21 03:45 75 25 148/98 94 Mechanical Ventilator 100.00 08/30/21 03:41 73 18 90 100 08/30/21 03:15 68 18 140/102 94 Mechanical Ventilator 100.00 08/30/21 03:00 67 17 141/96 94 Mechanical Ventilator 100.00 08/30/21 02:45 68 24 136/90 94 Mechanical Ventilator 100.00 08/30/21 02:41 72 08/30/21 02:30 71 24 127/86 90 Mechanical Ventilator 100.00 08/30/21 02:12 Mechanical Ventilator 100 I & O 08/30/21 07:00 Intake Total 0 ml Output Total 500 ml Balance -500 ml Height & Weight Height: '" Weight: lbs. oz. kg; 52.35 BMI Method: General Appearance: No Apparent Distress, Obese HEENT: Other (Endotracheal tube in place) Neck: Normal Inspection, Supple, Other (Central line in place) Respiratory: No Respiratory Distress, Decreased Breath Sounds, Other (Intubated and mechanically ventilated) Cardiovascular: No Edema, No Murmur, Bradycardia Capillary Refill: Less Than 3 Seconds Extremity: Normal Inspection, No Pedal Edema Skin: Normal Color, Warm/Dry Other comments per attending physician Results Lab Laboratory Tests 08/30/21 04:10 Radiology cxr reviewed. claudia. infiltrates. ET is in satisfactory place. no ptx. CT Angio chest at [facility] negative for PE, claudia. extensive infiltrates present. Assessment/Plan Assessment/Plan She is a 61-year-old female with past medical history of morbid obesity on the intellectual disabilities apparently marginally presented to [facility] on Wednesday, 24 August through with shortness of breath and found to have a Covid19 pneumonia. She was treated and released and subsequently she presented yesterday to [facility] in [place] where she was found to be hypoxic and intubated and subsequently transferred to [facility] in [place]. She is found to be in ARDS. I do not have much of information in the computer however I made the RN to fax in the information from [facility] and I have reviewed. She had a echocardiogram at that hospital and found to have a tachyarrhythmia it is not clear whether it is A. fib or sinus tach but no significant left ventricular regional wall motion abnormalities. Ejection fraction found to be around 55 to 60% with left ventricular hypertrophy. Also patient had a CT angiogram of the chest which is negative for pulmonary emboli but has a bilateral pulmonary infiltrates the pattern consistent with Covid19 pneumonia. Currently she is on mechanical ventilation sedated. Earlier this morning she was on a PEEP of 14 with 100% FiO2 but desaturated apparently hence in the vent setting change it to respiratory rate of 22 and PEEP of 18 with FiO2 of 100%. We are awaiting an arterial blood gas at this time. I have made a video visit and discussed with the ENVIRONMENTAL STUDIES DEPARTMENT CHAIR. Physical examination and review of system per attending physician. Critical Care: Ventilator Management Time spent with patient (mins): 55 ISRA HOWELL MD Aug 30, 2021 12:52
[2021-08-30] MEDS ORDERED: REMDESIVIR INJ 200 MG in NS (IVPB) 210 ML IV ONE (13:00)
--- NOTE | 2021-08-30 15:53 | Diagnostic Imaging Report ---
Clinical indication: Patient post intubation. Patient in ICU. Exam: Portable chest x-ray upright view. Comparisons: Chest x-ray dated 08/30/2021 at 0658 hours. Findings and impression: 1: ET tube is again seen with tip roughly 3.3 cm from the level of the stone. Feeding tube is seen with distal portion overlying the upper left abdominal region. 2: Right IJ central line is seen with distal portion in the low right atrial region. If this is a right IJ central line, this catheter should be withdrawn at least 9 cm to ensure better positioning. Repeat chest x-ray is also suggested. 3: Bilateral lung infiltrates are again seen with concern for bilateral pleural effusions. 4: Cardiomegaly is again noted. 5: The remainder of this exam shows no significant interval change compared to the prior study of comparison. Dictated by: Dictated on workstation # [id number]
[2021-08-30] MEDS ORDERED: ENOXAPARIN 40 MG/0.4 ML (LOVENOX) SYR SC SCH (17:00)
[2021-08-30] MEDS: RT-ALBUTEROL HFA 8.5 GM INHALER IH PRN (18:19)
[2021-08-30] MEDS: RT-ALBUTEROL HFA 8.5 GM INHALER IH SCH ×2 (18:21→22:01)
[2021-08-30] MEDS ORDERED: FUROSEMIDE 40 MG/4 ML INJ (LASIX) IVP ONE (20:30)
[2021-08-30] MEDS ORDERED: CISATRACURIUM DRIP 250 ML IV SCH (22:15)
[2021-08-30] MEDS: ENOXAPARIN 300 MG/3 ML (LOVENOX) MULTI-DOSE VIAL SQ SCH (23:08)
[2021-08-30] MEDS ORDERED: FUROSEMIDE 40 MG/4 ML INJ (LASIX) ONE (23:29)
[2021-08-30] MEDS ORDERED: CISATRACURIUM 2MG/ML (NIMBEX) 10ML VIAL IV PRN (23:30)
[2021-08-31 02:11] VITALS: BP 143/90
[2021-08-31] MEDS: RT-ALBUTEROL HFA 8.5 GM INHALER IH SCH ×6 (02:11→21:52)
[2021-08-31] MEDS: inSUlin ASPART (NovoLOG) 1 UNIT/0.01 ML (CHARGE PER UNIT) SC SCH ×4 (02:28→17:34)
[2021-08-31] MEDS: fentaNYL DRIP PRE-MIX 250 ML IV SCH ×2 (02:28→10:33)
[2021-08-31] MEDS: PROPOFOL DRIP (ICU) 100 ML IV SCH ×3 (04:05→15:54)
[2021-08-31 04:20] LABS: BASOPHILS % (AUTO) 0 % (0-10); EOSINOPHILS % (AUTO) 0 % (0-10); HEMATOCRIT 36 % (35-52); HEMOGLOBIN 11.7 g/dL (11.5-16.0); LYMPHOCYTES # (AUTO) 0.5 10^3/uL (1.0-4.0); LYMPHOCYTES % (AUTO) 3 % (12-44); MEAN CORPUSCULAR HEMOGLOBIN 32 pg (25-34); MEAN CORPUSCULAR HGB CONC 33 g/dL (32-36); MEAN CORPUSCULAR VOLUME 99 fL (80-99); MEAN PLATELET VOLUME 11.2 fL (9.0-12.2); MONOCYTES # (AUTO) 0.4 10^3/uL (0.0-1.0); MONOCYTES % (AUTO) 3 % (0-12); NEUTROPHILS % (AUTO) 91 % (42-75); PLATELET COUNT 175 10^3/uL (130-400); WHITE BLOOD COUNT 14.3 10^3/uL (4.3-11.0)
[2021-08-31 04:41] LABS: ALBUMIN 3.3 GM/DL (3.2-4.5); POTASSIUM 4.4 MMOL/L (3.6-5.0)
[2021-08-31 04:43] LABS: TOTAL PROTEIN 6.1 GM/DL (6.4-8.2)
[2021-08-31 04:45] LABS: BILIRUBIN,TOTAL 0.5 MG/DL (0.1-1.0)
[2021-08-31 04:47] LABS: CREATININE SERUM 0.93 MG/DL (0.60-1.30); PHOSPHORUS 3.5 MG/DL (2.3-4.7)
[2021-08-31 04:53] LABS: BAND NEUTROPHILS 15 %; LYMPHOCYTES % (MANUAL) 5 %; MONOCYTES % (MANUAL) 3 %; NEUTROPHILS % (MANUAL) 77 %; RBC MORPH NORMAL
[2021-08-31 07:23] VITALS: BP 114/71
[2021-08-31] MEDS: POTASSIUM CL 10MEQ/50ML IVPB 50 ML IV SCH (07:35)
[2021-08-31] MEDS: NOREPINEPHRINE 8 MG/250 ML 250 ML IV SCH ×3 (07:35→15:32)
[2021-08-31] MEDS: KCL 20 MEQ TAB (K-DUR) PO SCH (07:36)
[2021-08-31] MEDS: MAGNESIUM 1 GM/100 ML IVPB 100 ML IV SCH (07:36)
[2021-08-31] MEDS: ENOXAPARIN 300 MG/3 ML (LOVENOX) MULTI-DOSE VIAL SQ SCH ×2 (08:43→20:47)
[2021-08-31] MEDS ORDERED: REMDESIVIR INJ 100 MG in NS (IVPB) 230 ML IV SCH (09:00)
--- NOTE | 2021-08-31 10:49 | Tele-ICU Progress Note ---
Subjective Date Seen by a Provider: Aug 31, 2021 Time Seen by a Provider: 10:48 Subjective/Events-last exam Today patient remained on mechanical ventilation with a PEEP of 418 and FiO2 of 100% and currently she is being prolonged. Blood pressure is stable and heart rate is stable. No significant improvement since yesterday however. She is afebrile Review of Systems ROS PER ATTENDING PHYSICIAN Sepsis Event Evaluation Height, Weight, BMI Height: '" Weight: lbs. oz. kg; 52.35 BMI Method: Exam Exam Patient acknowledged, consented, and participated in this virtual visit which was conducted using real time audio/video Vital Signs Date Time Temp Pulse Resp B/P (MAP) Pulse Ox O2 Delivery O2 Flow Rate FiO2 08/31/21 09:00 36.7 55 18 110/69 93 Mechanical Ventilator 100.00 08/31/21 08:36 36.7 08/31/21 08:00 36.8 57 17 113/70 94 Mechanical Ventilator 100.00 08/31/21 07:23 56 22 95 100 08/31/21 07:00 36.8 52 21 114/70 95 Mechanical Ventilator 100.00 08/31/21 07:00 55 08/31/21 06:00 36.9 55 21 112/71 95 Mechanical Ventilator 100.00 08/31/21 05:00 36.8 55 22 122/74 95 Mechanical Ventilator 100.00 08/31/21 04:05 56 128/76 08/31/21 04:00 93 Mechanical Ventilator 100 08/31/21 04:00 36.9 56 22 119/75 94 Mechanical Ventilator 100.00 08/31/21 03:00 36.9 58 22 128/76 93 Mechanical Ventilator 100.00 08/31/21 02:11 67 22 94 100 08/31/21 02:00 36.9 63 14 129/83 93 Mechanical Ventilator 100.00 08/31/21 01:00 36.9 60 17 137/89 94 Mechanical Ventilator 100.00 08/31/21 01:00 61 08/31/21 00:00 37.0 62 14 134/82 91 Mechanical Ventilator 100.00 08/30/21 23:59 93 Mechanical Ventilator 100 08/30/21 23:00 37.1 60 18 117/82 91 Mechanical Ventilator 100.00 08/30/21 22:01 54 22 99 100 08/30/21 22:00 37.2 52 23 106/69 99 Mechanical Ventilator 100.00 08/30/21 21:00 37.1 51 19 90/54 99 Mechanical Ventilator 100.00 08/30/21 20:23 93 Mechanical Ventilator 100 08/30/21 20:00 37.1 53 22 92/59 99 Mechanical Ventilator 100.00 08/30/21 19:00 53 08/30/21 19:00 37.1 53 23 88/58 97 Mechanical Ventilator 100.00 08/30/21 18:22 53 22 96 100 08/30/21 18:00 37.0 51 21 93/60 95 Mechanical Ventilator 100.00 08/30/21 17:00 37.1 52 22 97/61 94 Mechanical Ventilator 100.00 08/30/21 16:43 94 Mechanical Ventilator 100 08/30/21 16:00 37.1 56 22 101/63 90 Mechanical Ventilator 100.00 08/30/21 15:51 56 24 93 100 08/30/21 15:00 37.0 51 22 88/55 93 Mechanical Ventilator 100.00 08/30/21 14:47 51 90/57 08/30/21 14:47 51 90/57 08/30/21 14:00 37.1 51 21 92/58 96 Mechanical Ventilator 100.00 08/30/21 13:00 37.1 52 21 90/58 93 Mechanical Ventilator 100.00 08/30/21 12:55 52 08/30/21 12:35 94 Mechanical Ventilator 100 08/30/21 12:00 36.9 51 21 90/57 96 Mechanical Ventilator 100.00 08/30/21 11:00 36.8 53 21 89/62 95 Mechanical Ventilator 100.00 I & O 08/31/21 07:00 Intake Total 1150 ml Output Total 2405 ml Balance -1255 ml Height & Weight Height: '" Weight: lbs. oz. kg; 52.35 BMI Method: General Appearance: No Apparent Distress, Obese HEENT: Other (Endotracheal tube in place) Neck: Normal Inspection, Supple, Other (Central line in place) Respiratory: No Respiratory Distress, Decreased Breath Sounds, Other (Intubated and mechanically ventilated) Cardiovascular: No Edema, No Murmur, Bradycardia Capillary Refill: Less Than 3 Seconds Extremity: Normal Inspection, No Pedal Edema Skin: Normal Color, Warm/Dry Other comments PE PER ATTENDING PHYSICIAN Results Lab Laboratory Tests 08/30/21 04:10 08/31/21 04:10 Assessment/Plan Assessment/Plan Assessment. 1. acute covid-19 pneumonia,severe 2.acute respiratory distress syndrome severe. 3.uncontrolled DM-2 4.super morbid obesity. Recommendations. 1.continue mechanical ventilation. 2.will give remdesvir and actemra. 3. iv decadron 4. contorl of dm-2 per attending. to keep bs <180 5.DVT and GI prophylaxis. 6. prognosis poor Critical Care: Ventilator Management Time spent with patient (mins): 35 ISRA HOWELL MD Aug 31, 2021 10:49
[2021-08-31] MEDS ORDERED: VANCOMYCIN INJECTION 0.1 MG in NS (IVPB) 250 ML IV SCH (11:00)
--- NOTE | 2021-08-31 11:02 | Progress Note - Hospitalist ---
Subjective HPI/CC On Admission Date Seen by Provider: Aug 31, 2021 Time Seen by Provider: 09:35 Gayle Nieto is a 61-year-old female who presented to [facility] with acute respiratory failure due to COVID-19. She required intubation and mechanical ventilation in their ER. Upon my examination she is unable to provide any history due to her clinical condition. She was reportedly diagnosed with Covid a few days prior to going into the emergency room. She has no significant past medical history other than mild cognitive impairment. Her daughter states that she has been living alone and has been in good health. Her daughter states that she would not want to be resuscitated if her heart was to stop beating. She also says that she did not want the ventilator but she would like to proceed now that she is on it. Subjective/Events-last exam She remains intubated and sedated. Objective Exam Vital Signs Vital Signs Date Time Temp Pulse Resp B/P (MAP) Pulse Ox O2 Delivery O2 Flow Rate FiO2 08/31/21 10:54 54 108/67 08/31/21 10:00 36.7 22 95 Mechanical Ventilator 100.00 08/31/21 08:00 100 Capillary Refill : Less Than 3 Seconds General Appearance: No Apparent Distress, Obese, Other (Intubated and sedated, proning) Respiratory: Lungs Clear, Normal Breath Sounds, No Respiratory Distress, Other (Intubated and mechanically ventilated) Cardiovascular: No Murmur, Bradycardia Gastrointestinal: Normal Bowel Sounds, Soft Extremity: Normal Inspection, No Pedal Edema Neurologic/Psychiatric: Other (Sedated) Skin: Normal Color, Warm/Dry Results/Procedures Lab Laboratory Tests 08/31/21 04:10 Patient resulted labs reviewed. Imaging: Reviewed Imaging Report Assessment/Plan Assessment and Plan Assess & Plan/Chief Complaint Acute respiratory distress syndrome due to COVID-19 Hypercoagulable state associated with COVID-19 Lymphopenia associated with COVID-19 Secondary Staph aureus pneumonia Elevated LFTs Super obesity Cognitive impairment Goals of care discussion Poor prognosis TeleICU following Continues to require high ventilator settings Continue therapeutic Lovenox Sputum culture with Staph aureus Begin Vancomycin Continue Decadron s/p Actemra 08/30 Stop Remdesivir, not indicated due to severity of illness Critical Care Critically Ill Patient Diagnosis/Problems Diagnosis/Problems (1) Acute respiratory distress syndrome (ARDS) due to COVID-19 virus Status: Acute (2) Hypercoagulable state associated with COVID-19 Status: Acute (3) Lymphopenia associated with COVID-19 Status: Acute (4) Staphylococcus aureus pneumonia Status: Acute (5) Elevated LFTs Status: Acute (6) Super obesity Status: Chronic (7) Cognitive impairment Status: Chronic (8) Poor prognosis Status: Acute (9) Goals of care, counseling/discussion Status: Acute (10) DNR (do not resuscitate) Status: Acute VICTORINO TAPIA MD Aug 31, 2021 11:02
[2021-08-31 11:13] VITALS: BP 103/67
[2021-08-31] MEDS ORDERED: VANCOMYCIN 2000 MG/NS 500 ML IVPB IV NR ×2 (12:00)
[2021-08-31] MEDS: PANTOPRAZOLE 40 MG (PROTONIX) VIAL IV SCH (12:22)
[2021-08-31] MEDS: LACTATED RINGERS 1,000 ML IV SCH ×2 (12:22→20:51)
[2021-08-31 13:54] LABS: ABG BASE EXCESS -1.6 MMOL/L (-2.5-2.5); ABG OXYGEN SATURATION 98 % (94-100); ABG PCO2 43 MMHG (35-45); ABG PH 7.35 (7.37-7.43); ABG PO2 120 MMHG (79-93); ABG TCO2 24.5 MMOL/L (21.0-31.0)
[2021-08-31 13:57] LABS: INSPIRED O2 100%; PATIENT TEMP 36.7; VENTILATOR YES
[2021-08-31 14:55] VITALS: BP 103/68
--- NOTE | 2021-08-31 15:35 | Diagnostic Imaging Report ---
Clinical indications: Patient ICU, Covid positive. Patient is intubated. Exam: Portable chest x-ray upright view. Comparisons: Chest x-ray dated 08/30/2021. Findings: Stable cardiomegaly. Pulmonary vasculature is obscured. There are bilateral lung infiltrates which have slightly improved in the right lung base. There is no right pleural effusion. There is blunting of the left costophrenic angle and a small left pleural effusion may be present. ET tube seen in stable good position. Feeding tube is noted with distal portion below the level of the diaphragm and is incompletely imaged. Right IJ central line again seen in stable position. Impression: 1: There are bilateral lung infiltrates which have slightly improved in the right lung base. 2: Cardiomegaly is again seen. Dictated by: Dictated on workstation # [id number]
[2021-08-31] MEDS: ROCURONIUM 10 MG/ML 5 ML SYRINGE IV PRN ×2 (15:53→23:07)
[2021-08-31 18:37] VITALS: BP 107/63
[2021-08-31] MEDS: VANCOMYCIN 1250 MG/NS 250 ML IVPB IV SCH ×2 (21:00)
[2021-08-31 21:52] VITALS: BP 107/63
[2021-09-01] MEDS: inSUlin ASPART (NovoLOG) 1 UNIT/0.01 ML (CHARGE PER UNIT) SC SCH ×4 (01:23→16:42)
[2021-09-01] MEDS: PROPOFOL DRIP (ICU) 100 ML IV SCH ×3 (01:26→10:24)
[2021-09-01] MEDS: POTASSIUM CL 10MEQ/50ML IVPB 50 ML IV SCH (02:31)
[2021-09-01] MEDS: KCL 20 MEQ TAB (K-DUR) PO SCH (02:31)
[2021-09-01] MEDS: NOREPINEPHRINE 8 MG/250 ML 250 ML IV SCH ×2 (02:31→15:47)
[2021-09-01] MEDS: MAGNESIUM 1 GM/100 ML IVPB 100 ML IV SCH (02:31)
[2021-09-01] MEDS: RT-ALBUTEROL HFA 8.5 GM INHALER IH SCH ×6 (02:47→22:18)
[2021-09-01 02:48] VITALS: BP 120/69
[2021-09-01] MEDS: fentaNYL DRIP PRE-MIX 250 ML IV SCH ×4 (03:03→18:40)
[2021-09-01 03:24] LABS: ABG BASE EXCESS -0.8 MMOL/L (-2.5-2.5); ABG OXYGEN SATURATION 98 % (94-100); ABG PCO2 41 MMHG (35-45); ABG PH 7.37 (7.37-7.43); ABG PO2 101 MMHG (79-93); BASOPHILS % (AUTO) 0 % (0-10); EOSINOPHILS % (AUTO) 0 % (0-10); HEMATOCRIT 33 % (35-52); HEMOGLOBIN 10.7 g/dL (11.5-16.0); LYMPHOCYTES # (AUTO) 0.4 10^3/uL (1.0-4.0); LYMPHOCYTES % (AUTO) 4 % (12-44); MEAN CORPUSCULAR HEMOGLOBIN 32 pg (25-34); MEAN CORPUSCULAR HGB CONC 32 g/dL (32-36); MEAN CORPUSCULAR VOLUME 100 fL (80-99); MEAN PLATELET VOLUME 10.8 fL (9.0-12.2); MONOCYTES # (AUTO) 0.6 10^3/uL (0.0-1.0); MONOCYTES % (AUTO) 6 % (0-12); NEUTROPHILS % (AUTO) 89 % (42-75); PLATELET COUNT 170 10^3/uL (130-400); WHITE BLOOD COUNT 10.1 10^3/uL (4.3-11.0)
[2021-09-01 03:25] LABS: ALLENS TEST YES-POS
[2021-09-01 03:26] LABS: INSPIRED O2 75%; PATIENT TEMP 36.7; VENTILATOR YES
[2021-09-01 03:34] LABS: ALBUMIN 2.9 GM/DL (3.2-4.5); POTASSIUM 4.4 MMOL/L (3.6-5.0)
[2021-09-01 03:35] LABS: CALCIUM 7.6 MG/DL (8.5-10.1)
[2021-09-01 03:37] LABS: TOTAL PROTEIN 5.4 GM/DL (6.4-8.2)
[2021-09-01 03:38] LABS: BILIRUBIN,TOTAL 0.5 MG/DL (0.1-1.0)
[2021-09-01 03:40] LABS: CREATININE SERUM 0.8 MG/DL (0.60-1.30); PHOSPHORUS 3.3 MG/DL (2.3-4.7)
[2021-09-01 03:43] LABS: MAGNESIUM 2.2 MG/DL (1.6-2.4)
[2021-09-01] MEDS: VANCOMYCIN 1250 MG/NS 250 ML IVPB IV SCH ×2 (05:53)
[2021-09-01 07:09] VITALS: BP 120/67
--- NOTE | 2021-09-01 08:49 | Progress Note - Hospitalist ---
Subjective HPI/CC On Admission Date Seen by Provider: Sep 01, 2021 Time Seen by Provider: 08:42 Gayle Nieto is a 61-year-old female who presented to [facility] with acute respiratory failure due to COVID-19. She required intubation and mechanical ventilation in their ER. Upon my examination she is unable to p rovide any history due to her clinical condition. She was reportedly diagnosed with Covid a few days prior to going into the emergency room. She has no significant past medical history other than mild cognitive impairment. Her daughter states that she has been living alone and has been in good health. Her daughter states that she would not want to be resuscitated if her heart was to stop beating. She also says that she did not want the ventilator but she would like to proceed now that she is on it. Subjective/Events-last exam Pt intubated and sedated. No ROS possible. RN reports weaning down on oxygen and doing well. CXR on08/30 states IJ needing to be pulled back 9cm. Discussed with PICC nurse. Objective Exam Vital Signs Vital Signs Date Time Temp Pulse Resp B/P (MAP) Pulse Ox O2 Delivery O2 Flow Rate FiO2 09/01/21 08:00 36.3 54 22 119/66 96 Mechanical Ventilator 75.00 09/01/21 07:09 75 Capillary Refill : Less Than 3 Seconds General Appearance: Obese, Other (intubated and sedated- laying in prone position) Respiratory: Rhonci, Other (on vent) Cardiovascular: Regular Rate, Rhythm, No Murmur Genital/Rectal: Other (barcenas in place) Extremity: Normal Capillary Refill, Pedal Edema (trace) Neurologic/Psychiatric: Other (sedated, appears comfortable) Results/Procedures Lab Laboratory Tests 09/01/21 03:00 Patient resulted labs reviewed. Imaging: Reviewed Imaging Report Assessment/Plan Assessment and Plan Assess & Plan/Chief Complaint Acute respiratory distress syndrome due to COVID-19 Hypercoagulable state associated with COVID-19 Lymphopenia associated with COVID-19 Secondary Staph aureus pneumonia Elevated LFTs- stable Super obesity Cognitive impairment Goals of care discussion Poor prognosis TeleICU following, appreciate their expertise Continues to require high ventilator settings though weaning down on oxygen requirement Continue therapeutic Lovenox Sputum culture with Staph aureus Continue Vancomycin until sensitivities back Continue Decadron s/p Actemra 10/30 Proning Start tube feeds once recs from dietary available Will replace IJ with PICC line, discussed with PICC nurse DVT ppx: Lovenox as above Critical Care Critically Ill Patient IZAIAH OH MD Sep 01, 2021 08:48
[2021-09-01] MEDS: PANTOPRAZOLE 40 MG (PROTONIX) VIAL IV SCH (09:16)
[2021-09-01] MEDS: ENOXAPARIN 300 MG/3 ML (LOVENOX) MULTI-DOSE VIAL SQ SCH ×2 (09:19→21:24)
[2021-09-01] MEDS ORDERED: MIDAZOLAM DRIP PRE-MIX 100 ML IV SCH (10:00)
--- NOTE | 2021-09-01 11:06 | Tele-ICU Progress Note ---
Subjective Date Seen by a Provider: Sep 01, 2021 Time Seen by a Provider: 11:06 Sepsis Event Evaluation Height, Weight, BMI Height: '" Weight: lbs. oz. kg; 52.35 BMI Method: Exam Exam Patient acknowledged, consented, and participated in this virtual visit which was conducted using real time audio/video Vital Signs Date Time Temp Pulse Resp B/P (MAP) Pulse Ox O2 Delivery O2 Flow Rate FiO2 09/01/21 10:25 86 18 94 70 09/01/21 10:24 61 110/63 09/01/21 10:24 61 110/63 09/01/21 10:00 36.3 51 22 110/63 95 Mechanical Ventilator 75.00 09/01/21 09:00 36.4 53 21 108/63 95 Mechanical Ventilator 75.00 09/01/21 08:00 94 Mechanical Ventilator 70 09/01/21 08:00 36.3 54 22 119/66 96 Mechanical Ventilator 75.00 09/01/21 07:09 63 22 96 75 09/01/21 07:00 52 09/01/21 07:00 36.4 52 21 121/69 96 Mechanical Ventilator 75.00 09/01/21 06:10 36.4 55 22 121/66 95 Mechanical Ventilator 75.00 09/01/21 05:10 36.4 56 21 118/65 97 Mechanical Ventilator 75.00 09/01/21 04:10 36.6 60 21 122/64 96 Mechanical Ventilator 75.00 09/01/21 04:00 95 Mechanical Ventilator 75 09/01/21 03:10 36.7 65 23 126/69 96 Mechanical Ventilator 75.00 09/01/21 02:48 61 22 96 75 09/01/21 02:10 36.8 58 22 117/66 96 Mechanical Ventilator 75.00 09/01/21 01:27 65 106/58 09/01/21 01:26 65 106/58 09/01/21 01:24 Mechanical Ventilator 75.00 09/01/21 01:10 36.8 77 23 138/85 96 Mechanical Ventilator 80.00 09/01/21 01:00 73 09/01/21 00:10 36.9 65 21 106/58 96 Mechanical Ventilator 80.00 08/31/21 23:59 96 Mechanical Ventilator 75 08/31/21 23:25 37.0 71 22 109/58 96 Mechanical Ventilator 80.00 08/31/21 22:10 36.4 59 22 105/60 95 Mechanical Ventilator 80.00 08/31/21 21:58 93 75 08/31/21 21:52 60 22 97 80 08/31/21 21:10 36.1 59 21 102/60 97 Mechanical Ventilator 80.00 08/31/21 20:10 35.9 60 23 105/63 97 Mechanical Ventilator 80.00 08/31/21 20:00 97 Mechanical Ventilator 90 08/31/21 19:10 35.6 53 14 104/62 94 Mechanical Ventilator 80.00 08/31/21 19:00 53 08/31/21 18:37 53 22 92 80 08/31/21 18:00 35.4 50 22 105/68 94 Mechanical Ventilator 80.00 08/31/21 17:09 Mechanical Ventilator 80.00 08/31/21 17:00 35.1 50 20 102/66 98 Mechanical Ventilator 90.00 08/31/21 16:00 35.3 53 22 110/63 99 Mechanical Ventilator 90.00 08/31/21 15:54 51 112/64 08/31/21 15:53 51 112/64 08/31/21 15:32 51 112/64 08/31/21 15:28 98 Mechanical Ventilator 100 08/31/21 15:25 Mechanical Ventilator 90.00 08/31/21 15:00 36.5 51 22 112/64 96 Mechanical Ventilator 100.00 08/31/21 14:55 51 22 95 100 08/31/21 14:00 36.6 50 22 104/66 95 Mechanical Ventilator 100.00 08/31/21 13:00 36.7 52 12 102/68 95 Mechanical Ventilator 100.00 08/31/21 13:00 53 08/31/21 12:00 95 Mechanical Ventilator 100 08/31/21 12:00 36.6 52 21 104/66 94 Mechanical Ventilator 100.00 08/31/21 11:13 56 22 93 100 I & O 09/01/21 07:00 Intake Total 0 ml Output Total 1325 ml Balance -1325 ml Height & Weight Height: '" Weight: lbs. oz. kg; 52.35 BMI Method: General Appearance: Obese, Other (intubated and sedated- laying in prone position) HEENT: Other (Endotracheal tube in place) Neck: Normal Inspection, Supple, Other (Central line in place) Respiratory: Rhonci, Other (on vent) Cardiovascular: Regular Rate, Rhythm, No Murmur Capillary Refill: Less Than 3 Seconds Extremity: Normal Capillary Refill, Pedal Edema (trace) Neurologic/Psychiatric: Other (sedated, appears comfortable) Skin: Normal Color, Warm/Dry Results Lab Laboratory Tests 08/31/21 04:10 09/01/21 03:00 Assessment/Plan Assessment/Plan (Tele-ICU Physician , Progress Note ) Available chart/ vitals / labs / Images reviewed Video assessment done using teleICU camera, rest of exam as per RN Discussed with RN , EXAM PER RN Events overnight : Afebrile I/O = neg 2400 Drips: LR 100 Pressors: , hemodynamically stable Sedation gtt: ( RASS - 3 ) propogol 25 fntanyl 150 VENT SETTINGS and ABG reviewed Not candidate for SBT today REVIEWED Cardiovascular Stability / Sedation Score / FI02/PEEP / ABG / CXR Consultants: Hospital course: 08/30 - [facility] with acute respiratory failure due to COVID-19. She required intubation, CT PE negative at outside facility 11/11- VENT AC 400 - 22 , peep 18 75% A/P AHRF / ARDS due to severe COVID19 -prone protocol - conservative fluid strategy (aim for even or negative fluid balance [id number]/COVID-19 PNA (Date of diagnosis few dys PT A --Dexamethasone -- Cytokine release syndrome s/p Tocilizumab , ( consider Acyclovir for HSV/VZV prophylaxis after Tocilizumab- 30 days 400 po bid = will start if improving -Hypercoagulable state , DDIMER 3.8 on 08/30 -> lovenox full dose , follow D dimer , CT PE negative at outside facility Suspected superimposed bact PNA -empiric abx started on Cx sputum - MSSA presumed Anemia - delutional - follow Diabetes Mellitus - ISS , close f/up on steroids , increase ISS Elev TGL - 220 on 09/01 - change tro verced transaminitis likely due to COVID-19. Lines : IJ RIGHT (Central Line Necessity Reviewed) [place]: + OG: + Nutrition: TF 10 cc while supine Analgesia: Anxiety/ delirium VTE Prophylaxis: lovenox full Stress Ulcer Prophylaxis: PPI Plans in collaboration with bedside consultants and IM MDs. Discussed with RN to reach out if any questions or concerns A total of 37 minutes of critical care time was devoted to this patient today, required to treat and/or prevent further deterioration of critical care condition ( as above) . MONAE SWANSON MD Sep 01, 2021 11:06
[2021-09-01] MEDS ORDERED: inSUlin ASPART (NovoLOG) 1 UNIT/0.01 ML (CHARGE PER UNIT) SC SCH (12:00)
[2021-09-01] MEDS: LACTATED RINGERS 1,000 ML IV SCH ×2 (12:20→19:35)
[2021-09-01] MEDS ORDERED: TROUGH ORDER-PHARMACY XX NR (13:00)
[2021-09-01 14:04] VITALS: BP 121/68
[2021-09-01] MEDS: RT-ALBUTEROL HFA 8.5 GM INHALER IH PRN (14:07)
[2021-09-01] MEDS: ROCURONIUM 10 MG/ML 5 ML SYRINGE IV PRN (14:08)
[2021-09-01] MEDS ORDERED: NS IV 1000 ML 1,000 ML ONE (14:22)
--- NOTE | 2021-09-01 14:40 | Anesthesia-Procedure Note ---
Procedures/Interventions Procedure Start/Stop/Diagnosis Date of Procedure: Sep 01, 2021 Start Time: 14:15 Referring Physician: Diego Preprocedural Diagnosis: Covid Resp Failure Brief History Called by warehouse distribution manager to place A-Line on Covid + pt with respiratory failure. Pt sedated on vent unresponsive. Brief hx obtained from chart and RN. Rt wrist prepped with chlorhexidine. #20g Arrow cath placed x1 attempt under sterile technique. Good blood return and waveform on monitor. Secured with sterile op site and tape. Report to RN. Stop Time: 14:25 Postprocedural Diagnosis: Covid Resp Failure Arterial Line Arterial Line Catheter: 20G Type: Radial Location: Right Procedure: prepped, draped in sterile fashion, good wave-form was obtained, patient tolerated procedure well, no immediate complications, post procedure area cleaned, post procedure dressing applied KEN LOYOLA CRNA Sep 01, 2021 14:40
[2021-09-01] MEDS ORDERED: MIRA50TA PO (14:47)
[2021-09-01] MEDS ORDERED: IBUP-2473 PO (14:47)
[2021-09-01] MEDS ORDERED: SIMV10TA26 PO (14:47)
[2021-09-01] MEDS ORDERED: RT-ALBUINH INH (14:47)
[2021-09-01] MEDS ORDERED: LISI10TA25 PO (14:47)
--- NOTE | 2021-09-01 15:39 | Diagnostic Imaging Report ---
INDICATION: Evaluate PICC line. COMPARISON: 08/31/2021 FINDINGS: Single frontal radiographic view of the chest was obtained and demonstrates interval placement of left upper extremity PICC line, tip of which terminates in the high SVC annular junction of innominate veins. Indwelling endotracheal tube is seen with tip at the clavicular heads. Gastric tube extends inferiorly beyond the [id number]. Right internal jugular central venous catheter is also seen with tip in the low SVC. Lungs continue to show diffuse interstitial infiltrate, right greater than left. Overall, aeration is unchanged. There is no large effusion or pneumothorax. Cardiac silhouette is mildly enlarged. Pulmonary vasculature is heavily obscured, but appears to be within normal limits. IMPRESSION:. Lines and tubes as above. 2. Persistent diffuse bilateral interstitial infiltrate. 3. Mild cardiomegaly. Dictated by: Dictated on workstation # [id number]
[2021-09-01] MEDS: ceFAZolin 2 GM IV Premixed 50 ML IV SCH ×2 (16:26→21:25)
--- NOTE | 2021-09-01 17:01 | Diagnostic Imaging Report ---
INDICATION: Status post PICC line manipulation. COMPARISON: Earlier same day FINDINGS: Single frontal radiographic view of the chest was obtained and now demonstrates indwelling left upper extremity PICC line tip to terminate in the low SVC. Lungs continue to show diffuse interstitial infiltrate, right greater than left. Cardiac silhouette remains mildly enlarged. Pulmonary vasculature is within normal limits. There is no large effusion or pneumothorax. Endotracheal tube is again seen with tip at the clavicular heads. IMPRESSION: 1. Left upper extremity PICC line tip now terminates in the low SVC. 2. Otherwise, stable exam of the chest. Dictated by: Dictated on workstation # [id number]
[2021-09-01] MEDS ORDERED: ATROPINE INJECTION 1 MG/10 ML SYR (ABBOTT) ONE (18:31)
[2021-09-01 18:46] LABS: CALCIUM 7.1 MG/DL (8.5-10.1); CREATININE SERUM 0.64 MG/DL (0.60-1.30); MAGNESIUM 2.1 MG/DL (1.6-2.4); POTASSIUM 3.9 MMOL/L (3.6-5.0)
[2021-09-01 19:17] VITALS: BP 140/61
[2021-09-01] MEDS ORDERED: LACRI-LUBE OPTHALMIC OINT 3.5 GM TUBE OU PRN (19:45)
[2021-09-01] MEDS ORDERED: ceFAZolin INJECTION 0 MG ONE (20:57)
[2021-09-01] MEDS ORDERED: MICONAZOLE 2% POWDER (DESENEX AF) 90 GM TOP SCH (21:00)
[2021-09-01 22:20] VITALS: BP 134/58
[2021-09-02] MEDS: LACTATED RINGERS 1,000 ML IV SCH (00:18)
[2021-09-02] MEDS: inSUlin ASPART (NovoLOG) 1 UNIT/0.01 ML (CHARGE PER UNIT) SC SCH (00:50)
--- NOTE | 2021-09-02 00:53 | Tele-ICU Progress Note ---
Progress Note Family has arrived, requesting terminal extubation. Chart reviewed, this appears appropriate for her clinical condition and consistent with prior documented coversations stating that the patient would have declined intubation if given the chance. Comfort orders entered. Focused Exam Height, Weight, BMI Height: '" Weight: lbs. oz. kg; 52.35 BMI Method: AYO JOHNSTON MD Sep 02, 2021 00:53
[2021-09-02] MEDS ORDERED: LORazepam INJ 2 MG/ML (ATIVAN) VIAL IVP PRN (01:00)
[2021-09-02] MEDS ORDERED: ONDANSETRON 4 MG/2 ML (SDV) Z0FRAN IVP PRN (01:00)
[2021-09-02] MEDS ORDERED: ARTIFICAL TEARS 0.4 ML UNIT DOSE (REFRESH PLUS) OU PRN (01:00)
[2021-09-02] MEDS ORDERED: RT-ALBUTEROL/IPRATROPIUM 3 ML (DUONEB) VIAL INH PRN (01:00)
[2021-09-02] MEDS ORDERED: GLYCOPYRROLATE 0.2 MG/ML (ROBINUL) 2 ML VIAL IV PRN (01:00)
[2021-09-02] MEDS ORDERED: SALIVA STIMULANT MOUTH SPRAY (BIOTENE) 1.5 OZ MM PRN (01:00)
[2021-09-02] MEDS ORDERED: ACETAMINOPHEN 650 MG SUPP (TYLENOL) PR PRN (01:00)
[2021-09-02] MEDS ORDERED: PROMETHAZINE INJ 25 MG/ML (PHENERGAN) AMP IVP PRN (01:00)
[2021-09-02] MEDS ORDERED: morphine INJ 4 MG/ML 1 ML (VIAL/SYRINGE) IV PRN (01:00)
[2021-09-02] MEDS ORDERED: BISACODYL 10 MG SUPP (DULCOLAX) PR PRN (01:00)
[2021-09-02 02:39] VITALS: BP 152/64
[2021-09-02] MEDS: RT-ALBUTEROL HFA 8.5 GM INHALER IH SCH ×2 (02:39→06:36)
--- NOTE | 2021-09-02 07:34 | Discharge Summary ---
Discharge Summary Date of Admission Aug 30, 2021 at 02:12 Date of Discharge Admission Diagnosis Acute respiratory distress syndrome due to COVID-19 Comfort Measures/ End of Life Care: Comfort Measures Patient was admitted secondary to acute hypoxic respiratory failure secondary to COVID-19. She presented from outside hospital and required mechanical ventilation. She was treated with Actemra, Decadron, and all other supportive measures. Despite this she continued to worsen and family elected to make her comfort care. She was palliatively extubated and passed peacefully with her family at her bedside. Discharge Diagnosis Acute respiratory distress syndrome due to COVID-19 Hypercoagulable state associated with COVID-19 Lymphopenia associated with COVID-19 Secondary Staph aureus pneumonia Elevated LFTs- stable Super obesity Cognitive impairment Goals of care discussion Poor prognosis (1) Acute respiratory distress syndrome (ARDS) due to COVID-19 virus Status: Acute (2) Hypercoagulable state associated with COVID-19 Status: Acute (3) Lymphopenia associated with COVID-19 Status: Acute (4) Staphylococcus aureus pneumonia Status: Acute (5) Elevated LFTs Status: Acute (6) Super obesity Status: Chronic (7) Cognitive impairment Status: Chronic (8) Poor prognosis Status: Acute (9) Goals of care, counseling/discussion Status: Acute (10) DNR (do not resuscitate) Status: Acute IZAIAH OH MD Sep 02, 2021 07:34
== END 2021-09-02 10:00 | disposition expired | DRG 208 ==
LOC: ICU 08-30 02:12
PROVIDERS: ADMIT Internal Medicine; ATTEND Internal Medicine
PROC: 5A1945Z Respiratory Ventilation, 24-96 Consecutive Hours (ICD-10-PCS; principal; 2021-08-30)
PROC: XW033E5 Introduction of Remdesivir Anti-infective into Peripheral Vein, Percutaneous Approach, New Technology Group 5 (ICD-10-PCS; 2021-08-31)
DX: U07.1 COVID-19 (principal); J80 Acute respiratory distress syndrome; J12.82 Pneumonia due to coronavirus disease 2019; J15.211 Pneumonia due to Methicillin susceptible Staphylococcus aureus; Z68.43 Body mass index [BMI] 50.0-59.9, adult; D68.69 Other thrombophilia; E66.01 Morbid (severe) obesity due to excess calories; R41.89 Other symptoms and signs involving cognitive functions and awareness; E11.65 Type 2 diabetes mellitus with hyperglycemia; Z66 Do not resuscitate; Z51.5 Encounter for palliative care; Z73.0 Burn-out; F78.A9 Other genetic related intellectual disability; R74.01 Elevation of levels of liver transaminase levels; D72.810 Lymphocytopenia
CPT/HCPCS: 36415; 36569; 71045; 76937; 80048; 80053; 82805; 82947; 83735; 84100; 84145; 84478; 85007; 85025; 85027; 85379; 87070; 87077; 87081; 87186; 87205; 94002; 94003; 94640; 94799